=== PATIENT | female | born 1950 | race Two or more races ===

== ENCOUNTER 2017-12-21 05:26 | Inpatient (IN) ==
[2017-12-21] MEDS ORDERED: Bisacodyl 10 MG Supp RECTAL PRN (11:14)
--- NOTE | 2017-12-21 12:38 | P.HPCC ---
History of Present Illness Service: Critical Care Medicine Primary Care Physician: UNKNOWN Chief Complaint: Encephalopathy History of Present Illness: Patient is a 67-year-old female who arrives to the ER via EMS with altered mental status. Patient is diabetic. Family members noted that patient had thrown her medication around the room and pt was found on the floor and noted to be combative and agitated. Upon EMS arrival, patient was found to have a blood sugar of 34. They were unable to obtain IV access. Patient is agitated and uncooperative and nonverbal. Patient continues to writhe and make non- intelligible sounds. Patient is morbidly obese and EMS was unable to obtain an intraosseous catheter. Upon arrival in the emergency department, patient had to be restrained with soft restraints. Ativan 1 mg IM was given to try and calm her down. Per EMS, patient has done something similar to this once before when she took too many of her meds at once. A CAT scan of the head raise some suspicion for a possible area of frontal lobe contusion or bleed however further review indicates that this is most probably artifact. There is no evidence of external trauma to the head. The patient does complain of having fallen straight on both knees and having pain in the knees. Further she has long-standing gout and has ankle and knee pain. Because she fell onto her knees and has pain, we obtained bilateral knee films which are negative. - Diagnosis (1) Encephalopathy, metabolic (2) Poorly controlled diabetes mellitus Inpatient Certification: I certify that the inpatient services were ordered in accordance with Medicare regulations governing the order. This includes certification that hospital inpatient services are reasonable and necessary and in the case of services not specified as inpatient-only under 42 CFR 419.22(n), that they are appropriately provided as inpatient services in accordance to with the 2-midnight benchmark under 43 CFR 412.3(e) Estimated Total Length of Stay (Days): 2 Plans for Post Hospital Care: Home Review of Systems Mild shortness of breath, no chest pain. Complains of bilateral knee pain. No dizziness or lightheaded at this time. PMFSH - History History Provided By: Patient, Medical Record - Medical History Medical History: Medical History (Last Updated 12/21/17 @ 11:51 by Kristie Timmons RN) Anxiety Back pain Depression Hypercholesteremia Past heart attack Arthritis DVT (deep venous thrombosis) Diabetes H/O: hysterectomy Hypertension Kidney disease - Tobacco History Second Hand Smoke Exposure: No Smoking Status: Unknown if ever smoked - Alcohol History How Often Do You Have a Drink Containing Alcohol: Unable to Obtain - Substance Use History Substance History: No History of Abuse - Immunization History Tetanus Immunization: Unable to Assess Hx Influenza Vaccine This Season: Unable to Assess Medications and Allergies Active Medications: Active Medications Acetaminophen (Tylenol) 650 mg PO Q6H PRN PRN Reason: PAIN 1-10 AND/OR FEVER >101F Al Hydroxide/Mg Hydroxide (Milk Of Magnesia Liq) 30 ml PO Q12H PRN PRN Reason: Mild Constipation Aspirin (Ecotrin) 81 mg PO DAILY [facility] Bisacodyl (Dulcolax Supp) 10 mg RECTAL DAILY PRN PRN Reason: SEVERE CONSITIPATION Carvedilol (Coreg) 12.5 mg PO BID [facility] Chlorhexidine Gluconate (Chlorhexidine 2% Cloth) 3 pack TOPICAL DAILY@0400 [facility] Stop: 12/27/17 03:59 Chlorhexidine Gluconate (Chlorhexidine 2% Cloth) 3 pack TOPICAL DAILY@0400 PRN PRN Reason: Extra cloth needed Stop: 12/27/17 03:59 Famotidine (Pepcid) 20 mg PO BID [facility] Ferrous Sulfate (Ferosul) 325 mg PO BID@1200,1700 [facility] Furosemide (Lasix) 40 mg PO DAILY [facility] Heparin Sodium (Porcine) (Heparin Inj) 5,000 units SQ Q12H [facility] Insulin Aspart (Novolog Mix 70/30 Inj) 36 units SQ DAILY [facility] Lactulose (Lactulose Liq) 30 ml PO DAILY PRN PRN Reason: SEVERE CONSITIPATION Levothyroxine Sodium (Synthroid) 100 mcg PO DAILY [facility] Risperidone (Risperdal) 1 mg PO BID [facility] Senna/Docusate Sodium (Essence-Colace) 1 tab PO BID [facility] Sennosides (Senokot) 17.2 mg PO Q12H PRN PRN Reason: Moderate Constipation Sertraline HCl (Zoloft) 50 mg PO DAILY [facility] Sodium Chloride (Ns Flush) 2 ml IV.FLUSH BID [facility] Sodium Chloride (Ns Flush) 2 ml IV.FLUSH PRN PRN PRN Reason: FLUSH AFTER USING IV ACCESS Tramadol HCl (Ultram) 50 mg PO TID PRN PRN Reason: Pain Allergies Allergy/AdvReac Type Severity Reaction Status Date / Time No Known Allergies Allergy Uncoded 11/30/12 00:14 Home Medications Medication Instructions Recorded Confirmed Type acetaminophen 500 mg PO Q4H PRN 12/21/17 12/21/17 History aspirin [Aspir-81] 81 mg PO DAILY 12/21/17 12/21/17 History bisacodyl 5 mg PO DAILY PRN 12/21/17 12/21/17 History carvedilol 12.5 mg PO BID 12/21/17 12/21/17 History furosemide 40 mg PO DAILY 12/21/17 12/21/17 History insulin asp prt-insulin aspart 36 unit SUBCUT DAILY 12/21/17 12/21/17 History [Novolog Mix 70-30 U-100 Insuln] levothyroxine 100 mcg PO DAILY 12/21/17 12/21/17 History ranitidine HCl 300 mg PO DAILY 12/21/17 12/21/17 History risperidone 1 mg PO BID 12/21/17 12/21/17 History sertraline 50 mg PO DAILY 12/21/17 12/21/17 History tramadol 50 mg PO TID PRN 12/21/17 12/21/17 History Results - Labs CBC & Chem 7: 12/21/17 15:25 Exam Vital signs: Intake & Output 12/20/17 12/21/17 12/21/17 18:59 06:59 18:59 Weight 132.8 kg Other: Weight On Admission 133.4 kg Narrative: Physical exam GENERAL: Obese elderly female very agitated and combative and uncooperative initially, now calm. SKIN: Focused skin assessment warm/dry. HEAD: Atraumatic. Normocephalic. EYES: Pupils equal and round. PABLO, no scleral icterus. No injection or drainage. ENT: No nasal bleeding or discharge. Mucous membranes pink and moist. NECK: Trachea midline. Airway widely patent, no obstructive noises. CARDIOVASCULAR: Regular rate and rhythm. 3/6 systolic murmur heard throughout precordium. No JVD. RESPIRATORY: No accessory muscle use. Clear to auscultation. Breath sounds equal bilaterally. GASTROINTESTINAL: Abdomen soft, non-tender, nondistended. No guarding, bowel sounds active. MUSCULOSKELETAL: No obvious deformities. No clubbing. No cyanosis. No edema. Warm, well-perfused. NEUROLOGICAL: Moving 4 extremities but agitated on arrival to ED. Calm cooperative now follows commands. Speaks only [place]. PSYCHIATRIC: Appropriate mood and affect; insight and judgment normal. Caprini VTE Risk Assessment Caprini VTE Risk Assessment: Moderate/High Risk (score >= 2) Caprini Risk Assessment Model: Point Value = 1 Point Value = 2 Point Value = 3 Point Value = 5 Age 41-60 Minor surgery BMI > 25 kg/m2 Swollen legs Varicose veins or History of unexplained or recurrent spontaneous Oral contraceptives or hormone replacement Sepsis (< 1 month) Serious lung disease, including pneumonia (< 1 month) Abnormal pulmonary function Acute myocardial infarction Congestive heart failure (< 1 month) History of inflammatory bowel disease Medical patient at bed rest Age 61-74 Arthroscopic surgery Major open surgery (> 45 min) Laparoscopic surgery (> 45 min) Malignancy Confined to bed (> 72 hours) Immobilizing plaster cast Central venous access Age >= 75 History of VTE Family history of VTE Factor V Leiden Prothrombin [id number] Lupus anticoagulant Anticardiolipin antibodies Elevated serum homocysteine Heparin-induced thrombocytopenia Other congenital or acquired thrombophilia Stroke (< 1 month) Elective arthroplasty Hip, pelvis, or leg fracture Acute spinal cord injury (< 1 month) Prophylaxis Regimen: Total Risk Factor Score Risk Level Prophylaxis Regimen 0-1 Low Early ambulation 2 Moderate Order ONE of the following: *Sequential Compression Device (SCD) *Heparin 5000 units SQ BID 3-4 Higher Order ONE of the following medications: *Heparin 5000 units SQ TID *Enoxaparin/Lovenox 40 mg SQ daily (WT < 150 kg, CrCl > 30 mL/min) *Enoxaparin/Lovenox 30 mg SQ daily (WT < 150 kg, CrCl > 10-29 mL/min) *Enoxaparin/Lovenox 30 mg SQ BID (WT < 150 kg, CrCl > 30 mL/min) AND/OR *Sequential Compression Device (SCD) 5 or more Highest Order ONE of the following medications: *Heparin 5000 units SQ TID (Preferred with Epidurals) *Enoxaparin/Lovenox 40 mg SQ daily (WT < 150 kg, CrCl > 30 mL/min) *Enoxaparin/Lovenox 30 mg SQ daily (WT < 150 kg, CrCl > 10-29 mL/min) *Enoxaparin/Lovenox 30 mg SQ BID (WT < 150 kg, CrCl > 30 mL/min) AND *Sequential Compression Device (SCD) Assessment and Plan - Problem List (1) Encephalopathy, metabolic Code(s): G93.41 - Metabolic encephalopathy Status: Acute (2) Poorly controlled diabetes mellitus Code(s): E11.65 - Type 2 diabetes mellitus with hyperglycemia Status: Acute - Assessment and Plan Plan: Plan: 1. Admit to ICU for ongoing evaluation 2. To 6-hour blood glucose determination with sliding scale insulin correction 3. 2000-calorie ADA diet 4. Restart insulin 70/30, 36 units daily 5. Electrolyte replacement protocol. 6. X-rays of both knees. 7. Repeat CAT scan of the head. 8. Notify neurosurgical service of arrival. Overall impression: This episode appears to have been initiated by a period of hypoglycemia. She has had this type of episode before when her blood sugar was low. Her neurological exam is grossly normal at this time and certainly nonfocal. Her glucose is clearly poorly controlled and her encephalopathy appears to have resolved following correction of her blood sugar. H&P: Quality - VTE Deep Vein Thrombosis/Pulmonary Embolism Present on Admission: No
[2017-12-21] MEDS ORDERED: Dextrose 50% in Water 50 ML Vial IV.PUSH PRN (12:40)
--- NOTE | 2017-12-21 12:40 | P.CONNS ---
History of Present Illness Primary Care Provider: UNKNOWN Chief Complaint: Evaluation of intracranial abnormality History of Present Illness: Ms. Hilliard is a 67 y/o female who was found hypoglycemic with altered mental status, transported to outside [place] facility for evaluation. CT of the head demonstrated hyperdensity in the left frontal lobe most consistent with artifact rather than intracranial hemorrhage. She was transported to [facility] for further evaluation. Review of Systems unobtainable due to mental status [facility] - History History Provided By: Patient, Medical Record - Medical / Surgical Hx Neg / Unobtainable Medical Problems Denied: Unable to Obtain Surgical History: Unable to Obtain - Medical History Medical History: Medical History (Last Updated 12/21/17 @ 11:51 by Kristie Timmons RN) Anxiety Back pain Depression Hypercholesteremia Past heart attack Arthritis DVT (deep venous thrombosis) Diabetes H/O: hysterectomy Hypertension Kidney disease - Tobacco History Second Hand Smoke Exposure: No Smoking Status: Unknown if ever smoked - Alcohol History How Often Do You Have a Drink Containing Alcohol: Unable to Obtain - Substance Use History Substance History: No History of Abuse - Immunization History Tetanus Immunization: Unable to Assess Hx Influenza Vaccine This Season: Unable to Assess Medications and Allergies Active Medications: Active Medications Acetaminophen (Tylenol) 650 mg PO Q6H PRN PRN Reason: PAIN 1-10 AND/OR FEVER >101F Al Hydroxide/Mg Hydroxide (Milk Of Aleyda Seo) 30 ml PO Q12H PRN PRN Reason: Mild Constipation Aspirin (Ecotrin) 81 mg PO DAILY [facility] Bisacodyl (Dulcolax Supp) 10 mg RECTAL DAILY PRN PRN Reason: SEVERE CONSITIPATION Carvedilol (Coreg) 12.5 mg PO BID [facility] Chlorhexidine Gluconate (Chlorhexidine 2% Cloth) 3 pack TOPICAL DAILY@0400 [facility] Stop: 12/27/17 03:59 Chlorhexidine Gluconate (Chlorhexidine 2% Cloth) 3 pack TOPICAL DAILY@0400 PRN PRN Reason: Extra cloth needed Stop: 12/27/17 03:59 Famotidine (Pepcid) 20 mg PO BID [facility] Ferrous Sulfate (Ferosul) 325 mg PO BID@1200,1700 [facility] Furosemide (Lasix) 40 mg PO DAILY [facility] Heparin Sodium (Porcine) (Heparin Inj) 5,000 units SQ Q12H [facility] Insulin Aspart (Novolog Mix 70/30 Inj) 36 units SQ DAILY [facility] Lactulose (Lactulose Liq) 30 ml PO DAILY PRN PRN Reason: SEVERE CONSITIPATION Levothyroxine Sodium (Synthroid) 100 mcg PO DAILY [facility] Risperidone (Risperdal) 1 mg PO BID [facility] Senna/Docusate Sodium (Essence-Colace) 1 tab PO BID [facility] Sennosides (Senokot) 17.2 mg PO Q12H PRN PRN Reason: Moderate Constipation Sertraline HCl (Zoloft) 50 mg PO DAILY [facility] Sodium Chloride (Ns Flush) 2 ml IV.FLUSH BID [facility] Sodium Chloride (Ns Flush) 2 ml IV.FLUSH PRN PRN PRN Reason: FLUSH AFTER USING IV ACCESS Tramadol HCl (Ultram) 50 mg PO TID PRN PRN Reason: Pain Allergies Allergy/AdvReac Type Severity Reaction Status Date / Time No Known Allergies Allergy Uncoded 11/30/12 00:14 Home Medications Medication Instructions Recorded Confirmed Type acetaminophen 500 mg PO Q4H PRN 12/21/17 12/21/17 History aspirin [Aspir-81] 81 mg PO DAILY 12/21/17 12/21/17 History bisacodyl 5 mg PO DAILY PRN 12/21/17 12/21/17 History carvedilol 12.5 mg PO BID 12/21/17 12/21/17 History furosemide 40 mg PO DAILY 12/21/17 12/21/17 History insulin asp prt-insulin aspart 36 unit SUBCUT DAILY 12/21/17 12/21/17 History [Novolog Mix 70-30 U-100 Insuln] levothyroxine 100 mcg PO DAILY 12/21/17 12/21/17 History ranitidine HCl 300 mg PO DAILY 12/21/17 12/21/17 History risperidone 1 mg PO BID 12/21/17 12/21/17 History sertraline 50 mg PO DAILY 12/21/17 12/21/17 History tramadol 50 mg PO TID PRN 12/21/17 12/21/17 History Exam Vital signs: Intake & Output 12/20/17 12/21/17 12/21/17 18:59 06:59 18:59 Weight 132.8 kg Other: Weight On Admission 133.4 kg Narrative: Opens eyes to voice, then closes PERRL EOMI Alert and oriented to self Grumbles when asked place and time Follows simple commands with prompting (squeeze/release, lifts legs/wiggles toes ). Results - Diagnostic Findings Additional findings: CT of the head demonstrated hyperdensity in the left frontal lobe most consistent with artifact rather than intracranial hemorrhage. Assessment and Plan - Plan Ms. Hilliard is a 67 y/o female presenting with altered mental status in the context of hypoglycemia. CT head with radiology read favoring artifact over hemorrhage, which I am in agreement (strongly favor artifact). Plan: No neurosurgical intervention indicated. Medical management of altered mental status and endocrinopathy per critical care team.
[2017-12-21] MEDS ORDERED: Carvedilol 12.5 MG Tablet PO ONE (12:45)
[2017-12-21] MEDS ORDERED: Labetalol HCl Inj 100 MG/20 ML Vial IV.PUSH PRN (13:00)
[2017-12-21] MEDS: Ferrous Sulfate 325 MG Tablet PO SCH ×2 (13:01→17:59)
[2017-12-21] MEDS: Heparin - SQ 10,000 UNITS/ML Vial SQ SCH (13:02)
--- NOTE | 2017-12-21 15:29 | XR ---
EXAM DATE: 12/21/2017 12:00 AM EDT AGE/SEX: 67 years / Female INDICATIONS: Evaluate right knee for trauma, fell CLINICAL DATA: This is the patient's initial encounter. Patient reports that signs and symptoms have been present for 2 days and indicates a pain score of 10/10. MEDICAL/SURGICAL HISTORY: Diabetes mellitus type II. Arthritis. None. COMPARISON: No prior exams available for comparison. FINDINGS: The examination demonstrates moderate tricompartmental osteoarthritis. No acute fracture is seen. No destructive lesion is present. CONCLUSION: No acute fracture. Tricompartmental osteoarthritis. Electronically signed by: Kody Guillen MD 12/21/2017 3:28 PM EDT
--- NOTE | 2017-12-21 15:29 | XR ---
EXAM DATE: 12/21/2017 12:00 AM EDT AGE/SEX: 67 years / Female INDICATIONS: Evaluate left knee for trauma, fell CLINICAL DATA: This is the patient's initial encounter. Patient reports that signs and symptoms have been present for 2 days and indicates a pain score of 8/10. MEDICAL/SURGICAL HISTORY: Diabetes mellitus type II. Arthritis. None. COMPARISON: . FINDINGS: The examination demonstrates advanced tricompartmental osteoarthritis with a small joint effusion. No acute fractures seen. CONCLUSION: Tricompartmental osteoarthritis. No acute fracture identified. Electronically signed by: Kody Guillen MD 12/21/2017 3:28 PM EDT
[2017-12-21 16:18] LABS: Calcium 8.5 mg/dL (8.5-10.1); Carbon Dioxide 27.1 meq/L (21.0-32.0); Potassium 4.3 meq/L (3.5-5.1)
[2017-12-21] MEDS: Insulin NovoLOG Aspart Correctional Sugar Inj SQ SCH ×2 (18:44→21:38)
--- NOTE | 2017-12-21 19:51 | CT ---
EXAM DATE: 12/21/2017 7:28 PM EDT AGE/SEX: 67 years / Female INDICATIONS: Follow up possible bleed vs. artifact. Patient with altered mental status. CLINICAL DATA: This is the patient's subsequent encounter. Patient reports that signs and symptoms h ave been present for 1 day and indicates a pain score of 0/10. MEDICAL/SURGICAL HISTORY: Cerebrovascular disease. Diabetes. None. RADIATION DOSE: 38.38 CTDI (mGy) COMPARISON: [facility], CT HEAD W/O CONTRAST, 12/21/2017. . TECHNIQUE: CT of the head without contrast. Using automated exposure control and adjustment of the mA and/or kV according to patient size, radiation dose was kept as low as reasonably achievable to ob tain optimal diagnostic quality images. DICOM format image data is available electronically for revi ew and comparison. FINDINGS: There is mild motion artifact again noted. Cerebrum: The ventricles are normal for age. No evidence of midline shift, mass lesion, hemorrhage or acute infarction. No extraaxial fluid collections are seen. The previous noted area of increased density along the anterior left medial frontal lobe is no longer visualized. There is a new area of i ncreased density seen on axial image #16 which may be artifactual. There is motion artifact throughou t these images. Posterior Fossa: The cerebellum and brainstem are intact. The 4th ventricle is midline. The cerebe llopontine angle is unremarkable. Extracranial: The visualized portion of the orbits is intact. Skull: The calvaria is intact. No evidence of skull fracture. There is mild hyperostosis frontalis internal greater on the left. CONCLUSION: 1. No definite acute hemorrhage or mass effect. The previously noted area of increased density is no longer visualized. There is a new area of increased density noted which appears artifactual likely i s secondary to motion artifact.. . Electronically signed by: Vinny Boudreaux MD 12/21/2017 7:50 PM EDT
[2017-12-21] MEDS ORDERED: Senna/Docusate Sodium 8.6/50 MG Tablet PO SCH (21:00)
[2017-12-21] MEDS: Famotidine 20 MG Tablet PO SCH (21:13)
[2017-12-21] MEDS: hydrALAZINE HCl Inj 20 MG/ML Vial IV.PUSH PRN ×2 (21:14→23:30)
[2017-12-21] MEDS: Carvedilol 12.5 MG Tablet PO SCH (22:05)
[2017-12-22] MEDS: Chlorhexidine Gluconate 2% 1 Pack (2 Cloths) TOPICAL SCH (03:19)
[2017-12-22] MEDS ORDERED: Chlorhexidine Gluconate 2% 1 Pack (2 Cloths) TOPICAL PRN (04:00)
[2017-12-22 04:30] LABS: Calcium 8.8 mg/dL (8.5-10.1); Carbon Dioxide 20.9 meq/L (21.0-32.0); Potassium 4.5 meq/L (3.5-5.1)
[2017-12-22] MEDS: Insulin NovoLOG Aspart Correctional Sugar Inj SQ SCH ×4 (08:00→20:42)
[2017-12-22] MEDS: Levothyroxine 100 MCG Tablet PO SCH (08:10)
[2017-12-22] MEDS: Sertraline 50 MG Tablet PO SCH (08:10)
[2017-12-22] MEDS: Famotidine 20 MG Tablet PO SCH ×2 (08:10→20:31)
[2017-12-22] MEDS: Furosemide 40 MG Tablet PO SCH (08:10)
[2017-12-22] MEDS: Carvedilol 12.5 MG Tablet PO SCH ×2 (09:00→21:55)
[2017-12-22] MEDS ORDERED: Insulin Aspart Prot 70/30 1,000 UNITS/10 ML Vial SQ SCH (09:00)
--- NOTE | 2017-12-22 11:22 | P.PN ---
Subjective Interval history: Follow-up metabolic encephalopathy/symptomatic hypoglycemia December 22, 2017-patient seen and examined, alert and oriented. Patient is a Yi-speaking female. Complains of headache. Requesting something to sleep tonight. Blood glucose low. Physical Exam Vital signs: Vital Signs 12/21/17 12:00 12/21/17 13:00 12/21/17 14:00 Temperature 97.9 F Pulse Rate 66 68 58 L Respiratory Rate 26 H 26 H 25 H Blood Pressure 182/79 H 193/79 H 97/44 L Pulse Oximetry 99 99 96 12/21/17 15:00 12/21/17 16:00 12/21/17 17:00 Temperature 99.4 F Pulse Rate 62 56 L 62 Respiratory Rate 21 28 H 24 Blood Pressure 162/70 H 159/71 H Pulse Oximetry 97 100 98 12/21/17 18:00 12/21/17 20:00 12/21/17 20:15 Temperature 98.1 F Pulse Rate 60 58 L Respiratory Rate 22 19 Blood Pressure 141/56 H 171/71 H Pulse Oximetry 98 99 98 12/21/17 22:00 12/22/17 00:00 12/22/17 02:00 Temperature 98.3 F Pulse Rate 62 56 L 54 L Respiratory Rate 22 Blood Pressure 138/63 Pulse Oximetry 99 12/22/17 04:00 12/22/17 06:00 Temperature 98 F Pulse Rate 58 L 50 L Respiratory Rate 17 Blood Pressure 115/57 L Pulse Oximetry 98 Intake & Output 12/21/17 12/22/17 12/22/17 18:59 06:59 18:59 Intake Total 400 / 400 Output Total 950 / 950 375 / 375 Balance -550 / -550 -375 / -375 Weight 132.8 kg 129.6 kg Intake: Oral 400 / 400 Output: Urine Amount (Catheter) 950 / 950 375 / 375 Indwelling Urethral Catheter 950 / 950 375 / 375 Other: Date of Last Bowel Movement 12/20/17 12/20/17 # Bowel Movements 0 0 Weight On Admission 133.4 kg Narrative: GENERAL: NAD SKIN: Warm and dry. HEAD: Normocephalic. EYES: No scleral icterus. No injection or drainage. NECK: Supple, trachea midline. No JVD or lymphadenopathy. CARDIOVASCULAR: Regular rate and rhythm without murmurs, gallops, or rubs. RESPIRATORY: Breath sounds equal bilaterally. No accessory muscle use. GASTROINTESTINAL: Abdomen soft, non-tender, nondistended. MUSCULOSKELETAL: No cyanosis, or edema. BACK: Nontender without obvious deformity. No CVA tenderness. - Urinary Catheter Management Indwelling Urethral Catheter Cath placed during this visit: no Results - Labs CBC & Chem 7: 12/22/17 03:06 Laboratory Results - last 24 hr 12/21/17 12/21/17 12/21/17 11:55 12:34 15:25 Sodium 143 Potassium 4.3 Chloride 108 H Carbon Dioxide 27.1 Anion Gap 8 BUN 18 Creatinine 1.45 H Estimated GFR 36 L POC Glucose 87 Random Glucose 115 H Calcium 8.5 D Nasal Screen MRSA (PCR) Not detected 12/21/17 12/21/17 12/22/17 16:03 21:18 03:06 Sodium 140 Potassium 4.5 Chloride 109 H Carbon Dioxide 20.9 L Anion Gap 10 BUN 22 H Creatinine 1.54 H Estimated GFR 33 L POC Glucose 113 H 114 H Random Glucose 93 Calcium 8.8 Nasal Screen MRSA (PCR) 12/22/17 08:23 Sodium Potassium Chloride Carbon Dioxide Anion Gap BUN Creatinine Estimated GFR POC Glucose 82 Random Glucose Calcium Nasal Screen MRSA (PCR) - Imaging Impressions Head CT 12/21/17 00:00 CONCLUSION: 1. No definite acute hemorrhage or mass effect. The previously noted area of increased density is no longer visualized. There is a new area of increased density noted which appears artifactual likely is secondary to motion artifact.. . Knee X-Ray 12/21/17 00:00 CONCLUSION: Tricompartmental osteoarthritis. No acute fracture identified. Knee X-Ray 12/21/17 00:00 CONCLUSION: No acute fracture. Tricompartmental osteoarthritis. - Procedures None Assessment and Plan - Assessment (1) Hypoglycemia associated with diabetes Code(s): E11.649 - Status: Acute (2) Encephalopathy, metabolic Code(s): G93.41 - Status: Acute - Plan 67-year-old female with Metabolic encephalopathy Now resolved It was due to severe episode of hypoglycemia Hypoglycemia associated with type 2 diabetes Will hold basal insulin Continue treatment per hypoglycemia protocol Diabetes type [address] of the head demonstrated hyperdensity in the left frontal lobe most consistent with artifact rather than intracranial hemorrhage. Appreciate input from neurosurgery, no indication for further study Other chronic medical conditions Continue outpatient medications DVT prophylaxis: Bilateral SCDs Continue treatment ICU as patient with blood glucose of 33
[2017-12-22] MEDS: Heparin - SQ 10,000 UNITS/ML Vial SQ SCH ×3 (12:27→23:32)
[2017-12-22] MEDS: Ferrous Sulfate 325 MG Tablet PO SCH ×2 (12:27→16:50)
--- NOTE | 2017-12-22 14:14 | ECHRPT ---
Indication: SHORTNESS OF BREATH CONCLUSIONS Normal left ventricular size. Mild concentric left ventricular hypertrophy. The left ventricular systolic function is low normal with an estimated ejection fraction in the rang e of 50- 55%. Mild mitral annular calcification. Trace mitral valve regurgitation. Mild aortic valve stenosis. Mean aortic valve gradient 16 mmhg Diffuse calcification of the aortic valve. There is mild tricuspid valve regurgitation. The estimated pulmonary arterial pressure is 39 mmHg. BP: / HR: Rhythm: MEASUREMENTS (Male / Female) Normal Values Technical Quality: 2D ECHO LV Diastolic Diameter PLAX 4.3 cm 4.2 - 5.9 / 3.9 - 5.3 cm LV Systolic Diameter PLAX 2.9 cm IVS Diastolic Thickness 1.2 cm 0.6 - 1.0 / 0.6 - 0.9 cm LVPW Diastolic Thickness 1.3 cm 0.6 - 1.0 / 0.6 - 0.9 cm LV Relative Wall Thickness 0.6 RV Internal Dim ED PLAX 3.3 cm LVOT Diameter 1.9 cm Aortic Root Diameter 2.5 cm LA Systolic Diameter LX 3.5 cm 3.0 - 4.0 / 2.7 - 3.8 cm LV Ejection Fraction MOD 4C 52.1 % LV Ejection Fraction 4C AL 53.0 % M-MODE Aortic Root Diameter MM 2.9 cm LA Systolic Diameter MM 4.4 cm LA Ao Ratio MM 1.5 AV Cusp Separation MM 1.3 cm DOPPLER AV Peak Velocity 277.8 cm/s AV Peak Gradient 30.9 mmHg AV Mean Gradient 16.0 mmHg AV Velocity Time Integral 75.0 cm LVOT Peak Velocity 89.5 cm/s LVOT Peak Gradient 3.2 mmHg LVOT Velocity Time Integral 26.4 cm AV Area Cont Eq vti 1.0 cm AV Area Cont Eq pk 0.9 cm Mitral E Point Velocity 113.0 cm/s Mitral A Point Velocity 119.0 cm/s Mitral E to A Ratio 0.9 LV E' Lateral Velocity 6.1 cm/s Mitral E to LV E' Lateral Ratio 18.4 LV E' Septal Velocity 6.7 cm/s Mitral E to LV E' Septal Ratio 16.8 TR Peak Velocity 270.0 cm/s TR Peak Gradient 29.2 mmHg Right Atrial Pressure 10.0 mmHg Pulmonary Artery Systolic Pressu 39.2 mmHg Right Ventricular Systolic Press 39.2 mmHg PV Peak Velocity 144.0 cm/s PV Peak Gradient 8.3 mmHg FINDINGS LEFT VENTRICLE Normal left ventricular size. Mild concentric left ventricular hypertrophy. The left ventricular systolic function is low normal with an estimated ejection fraction in the rang e of 50- 55%. RIGHT VENTRICLE Normal right ventricular size and systolic function. LEFT ATRIUM The left atrial size is normal. RIGHT ATRIUM The right atrial size is normal. ATRIAL SEPTUM Normal atrial septal thickness without atrial level shunting by limited color doppler interrogation. AORTA The aortic root and proximal ascending aorta are normal in size on limited imaging. MITRAL VALVE Mild mitral annular calcification. Trace mitral valve regurgitation. AORTIC VALVE Mild aortic valve stenosis. Mean gradient 16 mmhg. Diffuse calcification of the aortic valve. TRICUSPID VALVE There is mild tricuspid valve regurgitation. The estimated pulmonary arterial pressure is 39 mmHg. PULMONARY VALVE No pulmonary valve regurgitation or stenosis. VESSELS The inferior vena cava is normal in size. PERICARDIUM No pericardial effusion. Martin Godwin MD, FACC, [facility] [place] (Electronically Signed) Final Date:22 December 2017 14:12
[2017-12-22] MEDS: Temazepam 15 MG Capsule PO PRN (20:32)
[2017-12-23] MEDS: Chlorhexidine Gluconate 2% 1 Pack (2 Cloths) TOPICAL SCH (06:47)
[2017-12-23 07:47] LABS: Calcium 9.5 mg/dL (8.5-10.1); Carbon Dioxide 26.9 meq/L (21.0-32.0); Potassium 4.4 meq/L (3.5-5.1)
[2017-12-23] MEDS: Insulin NovoLOG Aspart Correctional Sugar Inj SQ SCH ×4 (09:01→21:46)
[2017-12-23] MEDS: Carvedilol 12.5 MG Tablet PO SCH ×2 (09:11→20:52)
[2017-12-23] MEDS: Furosemide 40 MG Tablet PO SCH (09:11)
[2017-12-23] MEDS: Levothyroxine 100 MCG Tablet PO SCH (09:11)
[2017-12-23] MEDS: Sertraline 50 MG Tablet PO SCH (09:12)
[2017-12-23] MEDS: Famotidine 20 MG Tablet PO SCH ×2 (09:12→20:54)
--- NOTE | 2017-12-23 11:29 | P.PNIM ---
Subjective Interval history: Patient sleeping, wakes of her exam. Over the phone conference interpreter used. Patient says that she has pain all over for which she uses narcotics at home. She says she has been using insulin 10 years. She is very concerned with following up with her pain management doctor tomorrow to receive narcotic prescription. She reports history of sleep apnea, initially says that she uses CPAP, however subsequently says that she left it in [place] 3 years ago. Physical Exam Vital signs: Vital Signs 12/22/17 12:00 12/22/17 14:00 12/22/17 16:00 Temperature 97.7 F 97.9 F Pulse Rate 58 L 65 60 Respiratory Rate 33 H 16 Blood Pressure 137/56 L 153/83 H Pulse Oximetry 90 L 98 12/22/17 18:00 12/22/17 20:00 12/22/17 22:00 Temperature 98.0 F Pulse Rate 62 68 60 Respiratory Rate 22 Blood Pressure 143/61 H Pulse Oximetry 98 12/23/17 00:00 12/23/17 01:00 12/23/17 04:00 Temperature 97.3 F L 97.4 F L Pulse Rate 64 67 68 Respiratory Rate 20 18 Blood Pressure 153/66 H 149/67 H Pulse Oximetry 97 93 L 12/23/17 08:00 Temperature 97.5 F L Pulse Rate 69 Respiratory Rate 20 Blood Pressure 144/63 H Pulse Oximetry 94 L Intake & Output 12/22/17 12/23/17 12/23/17 18:59 06:59 18:59 Intake Total 600 / 600 Output Total 1200 / 1200 Balance -600 / -600 Weight 130.1 kg Intake: Oral 600 / 600 Output: Urine Amount (Catheter) 1200 / 1200 Indwelling Urethral Catheter 1200 / 1200 Other: Date of Last Bowel Movement 12/20/17 12/20/17 # Bowel Movements 0 Narrative: GENERAL: Patient lying in bed. Obese. Sleeping, wakes up for exam. She is somnolent but oriented x3. SKIN: Warm and dry. HEAD: Normocephalic. EYES: No scleral icterus. No injection or drainage. NECK: Supple, trachea midline. No JVD. CARDIOVASCULAR: Regular rate and rhythm without murmurs, gallops, or rubs. RESPIRATORY: Breath sounds equal bilaterally. No accessory muscle use. GASTROINTESTINAL: Abdomen soft, non-tender, nondistended. MUSCULOSKELETAL: No cyanosis, or edema. BACK: Nontender without obvious deformity. No CVA tenderness. - Urinary Catheter Management Indwelling Urethral Catheter Cath placed during this visit: no Results - Labs CBC & Chem 7: 12/23/17 06:01 Laboratory Results - last 24 hr 12/22/17 12/22/17 12/22/17 12:42 16:34 20:36 Sodium Potassium Chloride Carbon Dioxide Anion Gap BUN Creatinine Estimated GFR POC Glucose 109 156 H 188 H Random Glucose Calcium TSH 12/23/17 12/23/17 12/23/17 05:02 06:01 06:01 Sodium 138 Potassium 4.4 Chloride 104 Carbon Dioxide 26.9 Anion Gap 7 BUN 26 H Creatinine 1.68 H Estimated GFR 30 L POC Glucose 106 Random Glucose 98 Calcium 9.5 TSH 2.220 - Procedures None Assessment and Plan - Assessment (1) Hypoglycemia associated with diabetes Code(s): E11.649 - Type 2 diabetes mellitus with hypoglycemia without coma Status: Acute (2) Encephalopathy, metabolic Code(s): G93.41 - Metabolic encephalopathy Status: Acute - Plan TSH pending. 67-year-old female with //Metabolic encephalopathy Now resolved It was due to severe episode of hypoglycemia. = Patient on chronic narcotics for diffuse pain. This pain is likely exacerbated by untreated sleep apnea, patient noncompliant with CPAP. She will need a new CPAP as an outpatient. //Affected obstructive sleep apnea //Chronic narcotic use Patient very concerned with following up to receive narcotic prescriptions from pain management tomorrow. I believe she has chronic untreated sleep apnea for which she is noncompliant with CPAP. Recommend avoiding all narcotics. You need to follow with pulmonology as outpatient to get a CPAP. //Hypoglycemia associated with type 2 diabetes Will hold basal insulin Continue treatment per hypoglycemia protocol = Have ordered elementary educator. //Diabetes type 2 Hold home medications //Kidney disease stage III. Creatinine around baseline. Avoid nephrotoxins. //CT of the head demonstrated hyperdensity in the left frontal lobe most consistent with artifact rather than intracranial hemorrhage. Appreciate input from neurosurgery, no indication for further study //Other chronic medical conditions Continue outpatient medications //DVT prophylaxis: Bilateral SCDs Discharge Planning: Hopefully discharge home with home health tomorrow
--- NOTE | 2017-12-23 11:33 | P.DCO ---
- Physical Therapy Order: Evaluate and treat - Home Health Nursing Order: Diabetic education Instructions: Patient will need home health nurse for medication management. Avoid narcotics - Case Management Consult Yes - Certification I have seen patient Chel Hilliard on 12/23/17. My clinical findings support the need for the requested home health care services because: Limited ability to care for self I certify that my clinical findings support that this patient is homebound because: Need for psychosocial assistance
[2017-12-23] MEDS: Heparin - SQ 10,000 UNITS/ML Vial SQ SCH ×2 (12:04→22:52)
[2017-12-23] MEDS: Ferrous Sulfate 325 MG Tablet PO SCH ×2 (12:04→18:18)
[2017-12-23 16:22] LABS: Hemoglobin A1c 5.3 % (4.3-6.0)
[2017-12-24] MEDS: Chlorhexidine Gluconate 2% 1 Pack (2 Cloths) TOPICAL SCH (06:34)
[2017-12-24] MEDS: Famotidine 20 MG Tablet PO SCH ×2 (09:29→21:02)
[2017-12-24] MEDS: Sertraline 50 MG Tablet PO SCH (09:29)
[2017-12-24] MEDS: Furosemide 40 MG Tablet PO SCH (09:30)
[2017-12-24] MEDS: Carvedilol 12.5 MG Tablet PO SCH ×2 (09:30→21:02)
[2017-12-24] MEDS: Levothyroxine 100 MCG Tablet PO SCH (09:30)
[2017-12-24] MEDS: Insulin NovoLOG Aspart Correctional Sugar Inj SQ SCH ×4 (09:33→21:02)
[2017-12-24] MEDS: Heparin - SQ 10,000 UNITS/ML Vial SQ SCH (11:00)
[2017-12-24] MEDS ORDERED: Promethazine 25 MG Supp RECTAL PRN (13:05)
[2017-12-24] MEDS: Ferrous Sulfate 325 MG Tablet PO SCH ×2 (13:37→18:27)
--- NOTE | 2017-12-24 14:38 | P.PNIM ---
Subjective Interval history: Somnolent today. She reports sleeping on her side at home, however sleeping on her back here. Physical Exam Vital signs: Vital Signs 12/23/17 16:00 12/23/17 20:00 12/24/17 00:00 Temperature 97.4 F L 98.1 F 97.9 F Pulse Rate 75 59 L 62 Respiratory Rate 20 18 20 Blood Pressure 171/79 H 179/77 H 151/71 H Pulse Oximetry 95 92 L 96 12/24/17 04:00 12/24/17 08:00 12/24/17 12:00 Temperature 96.1 F L 97.8 F 97.4 F L Pulse Rate 54 L 59 L 61 Respiratory Rate 20 16 16 Blood Pressure 135/61 167/71 H 167/65 H Pulse Oximetry 92 L 95 98 Intake & Output 12/23/17 12/24/17 12/24/17 18:59 06:59 18:59 Intake Total 240 / 240 400 / 400 Balance 240 / 240 400 / 400 Weight 128.3 kg Intake: Oral 240 / 240 400 / 400 Other: # Voids 5 2 # Bowel Movements 0 Narrative: GENERAL: Patient lying in bed. Obese. She is somnolent but, tells me the month , however does not tell me the year today. SKIN: Warm and dry. HEAD: Normocephalic. EYES: No scleral icterus. No injection or drainage. NECK: Supple, trachea midline. No JVD. CARDIOVASCULAR: Regular rate and rhythm without murmurs, gallops, or rubs. RESPIRATORY: Breath sounds equal bilaterally. No accessory muscle use. GASTROINTESTINAL: Abdomen soft, non-tender, nondistended. MUSCULOSKELETAL: No cyanosis, or edema. BACK: Nontender without obvious deformity. No CVA tenderness. - Urinary Catheter Management Indwelling Urethral Catheter Cath placed during this visit: no Results - Labs CBC & Chem 7: 12/23/17 06:01 Laboratory Results - last 24 hr 12/23/17 12/23/17 12/23/17 06:01 17:09 20:50 POC Glucose 178 H 173 H Hemoglobin A1c 5.3 12/24/17 12/24/17 08:23 12:35 POC Glucose 141 H 206 H Hemoglobin A1c - Procedures None Assessment and Plan - Assessment (1) Encephalopathy, metabolic Code(s): G93.41 - Metabolic encephalopathy Status: Acute (2) Poorly controlled diabetes mellitus Code(s): E11.65 - Type 2 diabetes mellitus with hyperglycemia Status: Acute (3) Hypoglycemia associated with diabetes Code(s): E11.649 - Type 2 diabetes mellitus with hypoglycemia without coma Status: Acute - Plan TSH pending. 67-year-old female with //Metabolic encephalopathy Now resolved It was due to severe episode of hypoglycemia. = Patient on chronic narcotics for diffuse pain. This pain is likely exacerbated by untreated sleep apnea, patient noncompliant with CPAP. She will need a new CPAP as an outpatient. =12/24 Patient very somnolent today. Malignant sleep apnea. Pulmonology consult. Have ordered CPAP. Instructed patient to sleep on her side while in the hospital. //Affected obstructive sleep apnea //Chronic narcotic use Patient very concerned with following up to receive narcotic prescriptions from pain management tomorrow. I believe she has chronic untreated sleep apnea for which she is noncompliant with CPAP. Recommend avoiding all narcotics. You need to follow with pulmonology as outpatient to get a CPAP. = Very severe sleep apnea. Will start on CPAP. Pending pulmonology consultation. //Hypoglycemia associated with type 2 diabetes Will hold basal insulin Continue treatment per hypoglycemia protocol = Have ordered breastfeeding educator. Patient will no longer need insulin. //Diabetes type 2 Hold home medications //Kidney disease stage III. Creatinine around baseline. Avoid nephrotoxins. //CT of the head demonstrated hyperdensity in the left frontal lobe most consistent with artifact rather than intracranial hemorrhage. Appreciate input from neurosurgery, no indication for further study //Other chronic medical conditions Continue outpatient medications //DVT prophylaxis: Bilateral SCDs Discharge Planning: Hopefully discharge home with home health tomorrow. --We will need to talk with family
--- NOTE | 2017-12-24 15:43 | P.DS ---
Date of admission: 12/21/17 10:04 Primary care physician: UNKNOWN Brief History from admission: Patient is a 67-year-old female who arrives to the ER via EMS with altered mental status. Patient is diabetic. Family members noted that patient had thrown her medication around the room and pt was found on the floor and noted to be combative and agitated. Upon EMS arrival, patient was found to have a blood sugar of 34. They were unable to obtain IV access. Patient is agitated and uncooperative and nonverbal. Patient continues to writhe and make non- intelligible sounds. Patient is morbidly obese and EMS was unable to obtain an intraosseous catheter. Upon arrival in the emergency department, patient had to be restrained with soft restraints. Ativan 1 mg IM was given to try and calm her down. Per EMS, patient has done something similar to this once before when she took too many of her meds at once. A CAT scan of the head raise some suspicion for a possible area of frontal lobe contusion or bleed however further review indicates that this is most probably artifact. There is no evidence of external trauma to the head. The patient does complain of having fallen straight on both knees and having pain in the knees. Further she has long-standing gout and has ankle and knee pain. Because she fell onto her knees and has pain, we obtained bilateral knee films which are negative. DS: Diagnosis - Discharge Diagnosis (1) Encephalopathy, metabolic Status: Acute (2) Poorly controlled diabetes mellitus Status: Acute (3) Hypoglycemia associated with diabetes Status: Acute DS: Summary Hospital Course: TSH pending. 67-year-old female with //Metabolic encephalopathy Now resolved It was due to severe episode of hypoglycemia. = Patient on chronic narcotics for diffuse pain. This pain is likely exacerbated by untreated sleep apnea, patient noncompliant with CPAP. She will need a new CPAP as an outpatient. =12/24 Patient very somnolent today. Malignant sleep apnea. Pulmonology consult. Have ordered CPAP. Instructed patient to sleep on her side while in the hospital. //Affected obstructive sleep apnea //Chronic narcotic use Patient very concerned with following up to receive narcotic prescriptions from pain management tomorrow. I believe she has chronic untreated sleep apnea for which she is noncompliant with CPAP. Recommend avoiding all narcotics. You need to follow with pulmonology as outpatient to get a CPAP. = Very severe sleep apnea. Will start on CPAP. Pending pulmonology consultation. //Hypoglycemia associated with type 2 diabetes Will hold basal insulin Continue treatment per hypoglycemia protocol = Have ordered adaptive physical educator. Patient will no longer need insulin. //Diabetes type 2 Hold home medications //Kidney disease stage III. Creatinine around baseline. Avoid nephrotoxins. //CT of the head demonstrated hyperdensity in the left frontal lobe most consistent with artifact rather than intracranial hemorrhage. Appreciate input from neurosurgery, no indication for further study //Other chronic medical conditions Continue outpatient medications //DVT prophylaxis: Bilateral SCDs Discharge Planning: Hopefully discharge home with home health tomorrow. --We will need to talk with family - Time Spent with Patient Total time spent providing and/or coordinating discharge services: Greater than 30 minutes - Quality: VTE Deep Vein Thrombosis/Pulmonary Embolism Present on Admission: No Exam Vital signs: Vital Signs 12/23/17 16:00 12/23/17 20:00 12/24/17 00:00 Temperature 97.4 F L 98.1 F 97.9 F Pulse Rate 75 59 L 62 Respiratory Rate 20 18 20 Blood Pressure 171/79 H 179/77 H 151/71 H Pulse Oximetry 95 92 L 96 12/24/17 04:00 12/24/17 08:00 12/24/17 12:00 Temperature 96.1 F L 97.8 F 97.4 F L Pulse Rate 54 L 59 L 56 L Respiratory Rate 20 16 16 Blood Pressure 135/61 167/71 H 167/65 H Pulse Oximetry 92 L 95 98 Intake & Output 12/23/17 12/24/17 12/24/17 18:59 06:59 18:59 Intake Total 240 / 240 400 / 400 Balance 240 / 240 400 / 400 Weight 128.3 kg Intake: Oral 240 / 240 400 / 400 Other: # Voids 5 2 # Bowel Movements 0 Results Procedures completed during hospitalization: None Labs on day of discharge: Labs from last 24 hours 12/24/17 12/24/17 12/23/17 12:35 08:23 20:50 POC Glucose 206 H 141 H 173 H Hemoglobin A1c 12/23/17 12/23/17 17:09 06:01 POC Glucose 178 H Hemoglobin A1c 5.3 - Impressions ITS Impressions Head CT 12/21/17 00:00 CONCLUSION: 1. No definite acute hemorrhage or mass effect. The previously noted area of increased density is no longer visualized. There is a new area of increased density noted which appears artifactual likely is secondary to motion artifact.. . Knee X-Ray 12/21/17 00:00 CONCLUSION: No acute fracture. Tricompartmental osteoarthritis. Discharge Plan - Discharge Disposition Patient Disposition: 01 Discharge Home - Discharge Condition Condition: Good - Discharge Order Discharge Orders: Discharge Order (Routine); Ordered 12/24/17 Ordered By: Gilberto Griffiths - Discharge Details Anticipated Discharge Date: 12/24/17 - Physicians Team Primary Care Provider: UNKNOWN, Attending Provider: Gilberto Griffiths Other Providers: Fermin Christensen MD - Rxs /Orders / Referrals /Forms Prescriptions: New glipizide 2.5 mg Tablet Extended Release 24hr 2.5 mg PO DAILY 30 Days Qty: 30 RF: 0 Continue aspirin [Aspir-81] 81 mg Tablet,Delayed Release (Dr/Ec) 81 mg PO DAILY bisacodyl 5 mg Tablet 5 mg PO DAILY PRN (Reason: Constipation) carvedilol 12.5 mg Tablet 12.5 mg PO BID furosemide 40 mg Tablet 40 mg PO DAILY levothyroxine 100 mcg Tablet 100 mcg PO DAILY risperidone 1 mg Tablet 1 mg PO BID sertraline 50 mg Tablet 50 mg PO DAILY tramadol 50 mg Tablet 50 mg PO TID PRN (Reason: Pain) Discontinued acetaminophen 500 mg Capsule 500 mg PO Q4H PRN (Reason: Pain) insulin asp prt-insulin aspart [Novolog Mix 70-30 U-100 Insuln] 100 unit/mL ( 70-30) Solution 36 unit SUBCUT DAILY ranitidine HCl 300 mg Capsule 300 mg PO DAILY Referrals: [facility] [Outside] - See Instructions (UNKNOWN COMMUNITY OUTREACH WORKER ) UNKNOWN, [Primary Care Provider] - See Instructions (PLEASE CALL FOR FOLLOW APPOINTMENT TO [facility] [phone] (MEDICAL RECORDS NEEDED) ) - Discharge Instructions Patient Printed Instructions: Glipizide (By mouth), Hypoglycemia in a Person with Diabetes (DC), Meal Planning with Diabetes Exchanges (DC)
--- NOTE | 2017-12-24 17:05 | XR ---
EXAM DATE: 12/24/2017 4:29 PM EDT AGE/SEX: 67 years / Female INDICATIONS: COPD. CLINICAL DATA: This is the patient's subsequent encounter. Patient reports that signs and symptoms h ave been present for 4 - 6 days and indicates a pain score of 0/10. MEDICAL/SURGICAL HISTORY: Diabetes. None. COMPARISON: No prior exams available for comparison. FINDINGS: A single AP view of the chest demonstrates bibasilar densities. Heart enlarged. The cardiomediastina l contours are unremarkable. Osseous structures are intact. CONCLUSION: Bibasilar opacities. Electronically signed by: Chong Rollins MD 12/24/2017 5:04 PM EDT
[2017-12-24 17:09] LABS: ABG Base Excess 2.8 mmol/L (-2-2); ABG PCO2 51 mmHg (38-42); ABG PO2 64 mmHg (61-120)
--- NOTE | 2017-12-24 17:44 | MB ---
cc: Fermin Christensen MD DATE: 12/24/2017 REASON FOR CONSULTATION: Morbid obesity, question of sleep apnea. HISTORY OF PRESENT ILLNESS: The patient is a 67-year-old female admitted to the hospital with altered mental status. The previous episodes have been attributed to taking excess medication at home. The patient is less confused, more responsive at present. She does have diabetes which is poorly controlled. She denies shortness of breath, fever, chills, cough, or expectoration. CT scan of the brain was without acute abnormality. PAST MEDICAL HISTORY: Chronic kidney disease, hypertension, diabetes mellitus, DVT, coronary artery disease by previous myocardial infarction, hyperlipidemia, mood disorder, namely depression. SOCIAL HISTORY: She does not smoke, does not drink. No TB. No industrial exposure. FAMILY HISTORY: Noncontributory. MEDICATIONS UPON PRESENTATION: 1. Tylenol. 2. Milk of Magnesia. 3. Ecotrin. 4. Coreg. 5. Pepcid. 6. Lasix. 7. Risperdal 8. Senokot. 9. Zoloft. ALLERGIES: NONE KNOWN TO MEDICATION. REVIEW OF SYSTEMS: A 12-point review of systems as per HPI and past history. Otherwise negative. PHYSICAL EXAMINATION: GENERAL: The patient is alert. VITAL SIGNS: Temperature 97.5, pulse 60, respiration 16, blood pressure 160/60, oxygen saturation 95%-98% on room air. HEENT: Unremarkable. Eyes are without icterus. NECK: No adenopathy or thyroid enlargement. Central trachea. CHEST: No dullness to percussion. Clear to auscultation. CARDIAC: PMI not appreciated. S1, S2 audible. A 1/6 soft ejection systolic murmur, left sternal border. ABDOMEN: Obese, lax. Bowel sounds audible. EXTREMITIES: No clubbing, cyanosis, or edema. SKIN: Normal. LYMPHATICS: No lymphadenopathy. LABORATORY DATA: White count 3000, hemoglobin 9.9, hematocrit 27, platelets 238,000. Sodium 137, potassium 4.5, BUN 44, creatinine 1.8. RPR nonreactive. ASSESSMENT AND PLAN: 1. Altered mental status, improving. 2. Morbid obesity. 3. Obstructive and/or central sleep apnea, suspect. 4. Hypertension. 5. Chronic kidney disease. 6. Diabetes mellitus. PLAN: The patient is with morbid obesity, and indeed, either obstructive sleep apnea or obesity hypoventilation may be present. She is obviously with excessive daytime sleepiness. However, she is alert at present, and I could not get a detailed sleep history. Her history is not very reliable. I would obtain baseline arterial blood gas, thyroid stimulating hormone level, as well as baseline lung function if at all possible. Post-discharge, a polysomnographic evaluation would be appropriate. The patient should be encouraged to exercise and lose weight. We will follow her course along with you and depending on progress proceed further. I do thank you for asking me to participate in Ms. Hilliard's care. MD SEDA Muller/[email or web address]/[email or web address] , 04:38 PM , 04:47 PM
--- NOTE | 2017-12-24 20:53 | MB ---
cc: Suhail Silveira MD DATE: 12/24/2017 CHIEF COMPLAINT: Fall. CONSULTING PHYSICIAN: Gilberto Griffiths MD HISTORY OF PRESENT ILLNESS: The patient is a 67-year-old female who is status post fall from bed. The patient was initially seen in the [facility] emergency department with noting altered mental status and landed on the floor of the bedroom with a blood sugar of 34. She was initially uncooperative and agitated and was transported to the emergency department for further evaluation including a CT scan of the head, which questioned intracranial hemorrhage versus streak artifact. On further questioning, the patient was noted to have fallen, again noted to have a very low blood sugar. She denies any loss of consciousness or hitting her head. She fell on her knees and is not complaining of focal neuro deficits or any more onset and change of neurologic status. The patient is Beninese speaking and upon evaluation is answering questions appropriately. She is awake, alert and oriented. The patient is noted to have multiple medical issues and is currently admitted to the ICU under close observation. After further examination, the CT scan favored streak artifact more than any type of intracranial hemorrhage. PAST MEDICAL HISTORY: Hypertension, anxiety, back pain, hypercholesteremia, heart attack, arthritis, DVT, diabetes, kidney disease. PAST SURGICAL HISTORY: Hysterectomy. SOCIAL HISTORY: Denies ETOH, smoking, or IVDA. ALLERGIES: NO KNOWN DRUG ALLERGIES. MEDICATIONS: See electronic medical record. FAMILY HISTORY: Denies diabetes or hypertension. REVIEW OF SYSTEMS: A 12-point review of systems is negative otherwise except for as above. PHYSICAL EXAMINATION: GENERAL: The patient in no acute distress. VITAL SIGNS: Temperature 99.4, pulse 56, respirations 28, blood pressure 159/71, saturation 100%. HEENT: Pupils equal, round, reactive. NECK: Supple. Clavicles nontender. HEART: S1, S2. Regular. ABDOMEN: Soft, nontender, nondistended. LUNGS: Bilateral expansion, clear. Pelvis stable. EXTREMITIES: Warm and well perfused. NEUROLOGIC: GCS 15, 5/5 motor in all extremities. PSYCHIATRIC: Appropriate mood, appropriate insight. LABORATORY AND DIAGNOSTIC DATA: WBC 3.1, hemoglobin 9.9, hematocrit 27.5, platelets 238. Sodium 137, potassium 4.5, chloride 99, BUN 44, creatinine 1.8. Glucose on admission, 34. Bilateral knee x-rays: Arthritis, no evidence of fracture. Head CT: Questionable streak artifact versus hemorrhage, after review with the radiologist more favoring streak artifact, left frontal lobe. ASSESSMENT AND PLAN: The patient is a 67-year-old female with multiple medical issues status post fall, hypoglycemic episode. Rule out trauma and rule out intracranial hemorrhage. PLAN: After full clinical workup, the patient was with above above-named issues. At this point, discussed with neurosurgery who agrees likely streak artifact rather than any signs of acute intracranial hemorrhage. At this point, the patient is cleared from a trauma standpoint. We will sign off. Recommend full medical management and correction of electrolytes and improvement of blood sugar and close monitoring. Again, we will defer to ISC and refinery operator alkylation for further workup and management. Suhail Silveira MD LSN/ct , 07:57 PM , 08:09 PM
[2017-12-25] MEDS: Heparin - SQ 10,000 UNITS/ML Vial SQ SCH ×2 (00:12→13:32)
[2017-12-25] MEDS: Chlorhexidine Gluconate 2% 1 Pack (2 Cloths) TOPICAL SCH (05:22)
[2017-12-25] MEDS: Carvedilol 12.5 MG Tablet PO SCH ×2 (09:03→21:38)
[2017-12-25] MEDS: Sertraline 50 MG Tablet PO SCH (09:04)
[2017-12-25] MEDS: Furosemide 40 MG Tablet PO SCH (09:04)
[2017-12-25] MEDS: Levothyroxine 100 MCG Tablet PO SCH (09:04)
[2017-12-25] MEDS: Famotidine 20 MG Tablet PO SCH ×2 (09:04→21:38)
[2017-12-25] MEDS: Insulin NovoLOG Aspart Correctional Sugar Inj SQ SCH (09:08)
--- NOTE | 2017-12-25 10:23 | P.PNIM ---
Subjective Interval history: Is very somnolent. Used over the phone reliability technicians. She says she is in [place], however when asked the year keeps repeating [place]. Nursing reports that patient kept taking the BiPAP off all night Physical Exam Vital signs: Vital Signs 12/24/17 12:00 12/24/17 16:00 12/24/17 20:00 Temperature 97.4 F L 97.4 F L 97.8 F Pulse Rate 56 L 65 72 Respiratory Rate 16 16 21 Blood Pressure 167/65 H 153/67 H 142/64 H Pulse Oximetry 98 90 L 90 L 12/24/17 21:39 12/25/17 00:00 12/25/17 03:47 Temperature 97.4 F L 98 F Pulse Rate 64 60 Respiratory Rate 20 18 Blood Pressure 136/62 144/60 H Pulse Oximetry 94 L 91 L 98 12/25/17 04:00 12/25/17 08:00 Temperature 98.0 F Pulse Rate 64 61 Respiratory Rate 20 Blood Pressure 117/76 Pulse Oximetry 100 Intake & Output 12/24/17 12/25/17 12/25/17 18:59 06:59 18:59 Intake Total 600 / 600 240 / 240 Balance 600 / 600 240 / 240 Weight 128 kg Intake: Oral 600 / 600 240 / 240 Other: # Voids 2 1 # Bowel Movements 1 Narrative: GENERAL: Patient lying in bed. Obese. She is somnolent about the same as yesterday. Appears she ate half of her breakfast however. To be protecting her airway SKIN: Warm and dry. HEAD: Normocephalic. EYES: No scleral icterus. No injection or drainage. NECK: Supple, trachea midline. No JVD. CARDIOVASCULAR: Regular rate and rhythm without murmurs, gallops, or rubs. RESPIRATORY: Breath sounds equal bilaterally. No accessory muscle use. GASTROINTESTINAL: Abdomen soft, non-tender, nondistended. MUSCULOSKELETAL: No cyanosis, or edema. BACK: Nontender without obvious deformity. No CVA tenderness. - Urinary Catheter Management Indwelling Urethral Catheter Cath placed during this visit: no Results - Labs CBC & Chem 7: 12/23/17 06:01 Laboratory Results - last 24 hr 12/24/17 12/24/17 12/24/17 12:35 16:59 19:43 Puncture Site Left radial Patient Temperature 98.6 O2 Saturation 89 L* ABG pH 7.36 L ABG pCO2 51 H* ABG pO2 64 ABG HCO3 28 H ABG O2 Content 12.1 ABG Base Excess 2.8 H ABG Methemoglobin 1.1 Eben Test Present Hemoglobin 9.7 L Carboxyhemoglobin 1.7 O2 Delivery Device Ra Inspired O2 21 Critical Value Yes POC Glucose 206 H TSH 1.900 12/24/17 12/25/17 20:52 08:25 Puncture Site Patient Temperature O2 Saturation ABG pH ABG pCO2 ABG pO2 ABG HCO3 ABG O2 Content ABG Base Excess ABG Methemoglobin Eben Test Hemoglobin Carboxyhemoglobin O2 Delivery Device Inspired O2 Critical Value POC Glucose 276 H 186 H TSH - Imaging Impressions Chest X-Ray 12/24/17 16:29 CONCLUSION: Bibasilar opacities. - Procedures None Assessment and Plan - Assessment (1) Encephalopathy, metabolic Code(s): G93.41 - Metabolic encephalopathy Status: Acute (2) Poorly controlled diabetes mellitus Code(s): E11.65 - Type 2 diabetes mellitus with hyperglycemia Status: Acute (3) Hypoglycemia associated with diabetes Code(s): E11.649 - Type 2 diabetes mellitus with hypoglycemia without coma Status: Acute - Plan TSH pending. 67-year-old female with //Metabolic encephalopathy Now resolved It was due to severe episode of hypoglycemia. = Patient on chronic narcotics for diffuse pain. This pain is likely exacerbated by untreated sleep apnea, patient noncompliant with CPAP. She will need a new CPAP as an outpatient. =12/24 Patient very somnolent today. Malignant sleep apnea. Pulmonology consult. Have ordered CPAP. Instructed patient to sleep on her side while in the hospital. = 12/25. He continues with severe sleep apnea. Patient with variable medical compliance at home. Suspect she does not even take Risperdal at home, just as needed. Will discontinue Risperdal here. Will start on modafinil for alertness. //Affected obstructive sleep apnea //Chronic narcotic use Patient very concerned with following up to receive narcotic prescriptions from pain management tomorrow. I believe she has chronic untreated sleep apnea for which she is noncompliant with CPAP. Recommend avoiding all narcotics. You need to follow with pulmonology as outpatient to get a CPAP. = Very severe sleep apnea. Will start on CPAP. Pending pulmonology consultation. = Continues with very severe sleep apnea, somnolence. Appreciate pulmonary assistance. //Hypoglycemia associated with type 2 diabetes Will hold basal insulin Continue treatment per hypoglycemia protocol = Have ordered environmental educator. Patient will no longer need insulin. = We will start on low-dose glipizide. //Diabetes type 2 Hold home medications //Kidney disease stage III. Creatinine around baseline. Avoid nephrotoxins. //CT of the head demonstrated hyperdensity in the left frontal lobe most consistent with artifact rather than intracranial hemorrhage. Appreciate input from neurosurgery, no indication for further study //Other chronic medical conditions Continue outpatient medications //DVT prophylaxis: Bilateral SCDs Discharge Planning: Hopefully discharge home with home health tomorrow. --We will need to talk with family
[2017-12-25] MEDS: glipiZIDE 5 MG Tablet PO SCH ×2 (13:31→17:15)
[2017-12-25] MEDS: Ferrous Sulfate 325 MG Tablet PO SCH ×2 (13:32→17:15)
[2017-12-25] MEDS: Modafinil 200 MG Tablet PO SCH (13:32)
--- NOTE | 2017-12-25 17:34 | P.PN ---
Subjective Interval history: alert NAD Physical Exam Vital signs: Vital Signs 12/24/17 20:00 12/24/17 21:39 12/25/17 00:00 Temperature 97.8 F 97.4 F L Pulse Rate 72 64 Respiratory Rate 21 20 Blood Pressure 142/64 H 136/62 Pulse Oximetry 90 L 94 L 91 L 12/25/17 03:47 12/25/17 04:00 12/25/17 08:00 Temperature 98 F 98.0 F Pulse Rate 60 64 58 L Respiratory Rate 18 20 Blood Pressure 144/60 H 117/76 Pulse Oximetry 98 100 12/25/17 12:00 Temperature 98.0 F Pulse Rate 70 Respiratory Rate 20 Blood Pressure 155/67 H Pulse Oximetry 92 L Intake & Output 12/24/17 12/25/17 12/25/17 18:59 06:59 18:59 Intake Total 600 / 600 240 / 240 Balance 600 / 600 240 / 240 Weight 128 kg Intake: Oral 600 / 600 240 / 240 Other: # Voids 2 1 # Bowel Movements 1 Narrative: GENERAL: Patient lying in bed. Obese. She is somnolent about the same as yesterday. Appears she ate half of her breakfast however. To be protecting her airway SKIN: Warm and dry. HEAD: Normocephalic. EYES: No scleral icterus. No injection or drainage. NECK: Supple, trachea midline. No JVD. CARDIOVASCULAR: Regular rate and rhythm without murmurs, gallops, or rubs. RESPIRATORY: Breath sounds equal bilaterally. No accessory muscle use. GASTROINTESTINAL: Abdomen soft, non-tender, nondistended. MUSCULOSKELETAL: No cyanosis, or edema. BACK: Nontender without obvious deformity. No CVA tenderness. - Urinary Catheter Management Indwelling Urethral Catheter Cath placed during this visit: no Results - Labs CBC & Chem 7: 12/23/17 06:01 Laboratory Results - last 24 hr 12/24/17 12/24/17 12/25/17 19:43 20:52 08:25 POC Glucose 276 H 186 H TSH 1.900 12/25/17 12/25/17 13:15 17:10 POC Glucose 194 H 225 H TSH - Procedures None Assessment and Plan - Plan IMPRESSIN RESPIRATORY FAILURE DEANNE/CSA CHRONIC COMPENSATED RESPIRATORY FAILURE DM HTN CKD MORBID OBESITY PLAN O2 NEEDED LOOSE WT PULM LASHAWN;ET NPSG POST D/C
[2017-12-26] MEDS: Heparin - SQ 10,000 UNITS/ML Vial SQ SCH ×3 (00:46→22:33)
[2017-12-26 02:59] LABS: Eos % (Auto) 1.5 % (0.0-4.0); Hematocrit 24.9 % (35.0-46.0); Hemoglobin 8.9 gm/dL (11.6-15.3); Lymph # (Auto) 0.7 th/mm3 (1.0-4.8); Lymph % (Auto) 31.8 % (9.0-44.0); Mean Corpuscular HGB Conc 35.8 % (32.0-36.0); Mean Corpuscular Hemoglobin 36.7 pg (27.0-34.0); Mean Corpuscular Volume 102.3 fL (80.0-100.0); Mean Platelet Volume 7.5 fL (7.0-11.0); Mono # (Auto) 0.4 th/mm3 (0.0-0.9); Neut # (Auto) 1.1 th/mm3 (1.8-7.7); Neut % (Auto) 48.7 % (16.0-70.0); Platelet Count 216 th/mm3 (150-450); Red Blood Count 2.43 mil/mm3 (4.00-5.30); White Blood Count 2.3 th/mm3 (4.0-11.0)
[2017-12-26 03:34] LABS: Albumin 3.1 g/dL (3.4-5.0); Magnesium 1.5 mg/dL (1.5-2.5); Phosphorus 3.4 mg/dL (2.5-4.9); Potassium 4.3 meq/L (3.5-5.1)
[2017-12-26] MEDS: Chlorhexidine Gluconate 2% 1 Pack (2 Cloths) TOPICAL SCH (05:13)
[2017-12-26] MEDS: Famotidine 20 MG Tablet PO SCH ×2 (08:59→21:10)
[2017-12-26] MEDS: Sertraline 50 MG Tablet PO SCH (09:00)
[2017-12-26] MEDS: Levothyroxine 100 MCG Tablet PO SCH (09:00)
[2017-12-26] MEDS: Carvedilol 12.5 MG Tablet PO SCH ×2 (09:00→21:10)
[2017-12-26] MEDS: Modafinil 200 MG Tablet PO SCH (09:00)
[2017-12-26] MEDS: Furosemide 40 MG Tablet PO SCH (09:00)
[2017-12-26] MEDS: glipiZIDE 5 MG Tablet PO SCH ×2 (09:01→17:24)
--- NOTE | 2017-12-26 10:08 | P.PNIM ---
Subjective Interval history: Patient is more awake today but says she is cold. She reports pleuritic type left-sided parasternal chest pain, nonradiating. Tender to palpation Physical Exam Vital signs: Vital Signs 12/25/17 12:00 12/25/17 15:00 12/25/17 16:00 Temperature 98.0 F 97.8 F Pulse Rate 58 L 58 L Respiratory Rate 20 18 20 Blood Pressure 155/67 H 141/66 H Pulse Oximetry 92 L 90 L 12/25/17 17:42 12/25/17 20:00 12/26/17 00:00 Temperature 97.4 F L 97.4 F L Pulse Rate 73 62 Respiratory Rate 18 18 Blood Pressure 143/65 H 112/58 L Pulse Oximetry 92 L 90 L 94 L 12/26/17 03:00 12/26/17 04:00 12/26/17 08:00 Temperature 98 F 98.1 F 97.3 F L Pulse Rate 57 L 62 58 L Respiratory Rate 18 18 16 Blood Pressure 168/81 H 149/63 H 169/67 H Pulse Oximetry 93 L 95 94 L Intake & Output 12/25/17 12/26/17 12/26/17 18:59 06:59 18:59 Intake Total 840 / 840 210 / 210 Balance 840 / 840 210 / 210 Intake: Oral 840 / 840 210 / 210 Other: # Voids 5 400 Date of Last Bowel Movement 12/25/17 Narrative: GENERAL: Patient lying in bed. Awake. Alert. Still disoriented to year, however oriented to month. SKIN: Warm and dry. HEAD: Normocephalic. EYES: No scleral icterus. No injection or drainage. NECK: Supple, trachea midline. No JVD. CARDIOVASCULAR: Regular rate and rhythm without murmurs, gallops, or rubs. RESPIRATORY: Breath sounds equal bilaterally. No accessory muscle use. GASTROINTESTINAL: Abdomen soft, non-tender, nondistended. MUSCULOSKELETAL: No cyanosis, or edema. BACK: Nontender without obvious deformity. No CVA tenderness. - Urinary Catheter Management Indwelling Urethral Catheter Cath placed during this visit: no Results - Labs CBC & Chem 7: 12/26/17 02:30 12/26/17 02:30 Laboratory Results - last 24 hr 12/25/17 12/25/17 12/26/17 13:15 17:10 02:30 WBC 2.3 L RBC 2.43 L Hgb 8.9 L Hct 24.9 L MCV 102.3 H MCH 36.7 H MCHC 35.8 RDW 14.0 Plt Count 216 MPV 7.5 Neut % (Auto) 48.7 Lymph % (Auto) 31.8 [place] % (Auto) 17.0 H Eos % (Auto) 1.5 Baso % (Auto) 1.0 Neut # (Auto) 1.1 L Lymph # (Auto) 0.7 L [place] # (Auto) 0.4 Eos # (Auto) 0.0 Baso # (Auto) 0.0 WBC Differential . Differential Comment Auto diff final Sodium Potassium Chloride Carbon Dioxide Anion Gap BUN Creatinine Estimated GFR POC Glucose 194 H 225 H Random Glucose Calcium Phosphorus Magnesium Albumin 12/26/17 02:30 WBC RBC Hgb Hct MCV MCH MCHC RDW Plt Count MPV Neut % (Auto) Lymph % (Auto) [place] % (Auto) Eos % (Auto) Baso % (Auto) Neut # (Auto) Lymph # (Auto) [place] # (Auto) Eos # (Auto) Baso # (Auto) WBC Differential Differential Comment Sodium 140 Potassium 4.3 Chloride 101 Carbon Dioxide 30.0 Anion Gap 9 BUN 42 H Creatinine 2.05 H Estimated GFR 24 L POC Glucose Random Glucose 153 H Calcium 9.0 Phosphorus 3.4 Magnesium 1.5 Albumin 3.1 L - Procedures None Assessment and Plan - Assessment (1) Encephalopathy, metabolic Code(s): G93.41 - Metabolic encephalopathy Status: Acute (2) Poorly controlled diabetes mellitus Code(s): E11.65 - Type 2 diabetes mellitus with hyperglycemia Status: Acute (3) Hypoglycemia associated with diabetes Code(s): E11.649 - Type 2 diabetes mellitus with hypoglycemia without coma Status: Acute - Plan TSH pending. 67-year-old female with //Metabolic encephalopathy Now resolved It was due to severe episode of hypoglycemia. = Patient on chronic narcotics for diffuse pain. This pain is likely exacerbated by untreated sleep apnea, patient noncompliant with CPAP. She will need a new CPAP as an outpatient. =12/24 Patient very somnolent today. Malignant sleep apnea. Pulmonology consult. Have ordered CPAP. Instructed patient to sleep on her side while in the hospital. = 12/25. He continues with severe sleep apnea. Patient with variable medical compliance at home. Suspect she does not even take Risperdal at home, just as needed. Will discontinue Risperdal here. Will start on modafinil for alertness. = 12/26. Reviewing old records, patient appears to have a B12 deficiency with B12 early this year in the 180s. Will recheck B12, methylmalonic acid. Will start IM supplementation. Continue modafinil. //B12 deficiency //Leukopenia //Anemia. Chronic. Back ascitic. Likely secondary to B12 deficiency. With iron supplementation. Hematology consulted. //Atypical left-sided chest pain -Tender to palpation. Likely costochondritis. We will check EKG, chest x-ray. D-dimer, bilateral lower extremity ultrasounds. Patient has been on heparin but does have history of DVT in the past. //Affected obstructive sleep apnea //Chronic narcotic use Patient very concerned with following up to receive narcotic prescriptions from pain management tomorrow. I believe she has chronic untreated sleep apnea for which she is noncompliant with CPAP. Recommend avoiding all narcotics. You need to follow with pulmonology as outpatient to get a CPAP. = Very severe sleep apnea. Will start on CPAP. Pending pulmonology consultation. = Continues with very severe sleep apnea, somnolence. Appreciate pulmonary assistance. //Hypoglycemia associated with type 2 diabetes //Type 2 diabetes Will hold basal insulin Continue treatment per hypoglycemia protocol = Have ordered family educator. Patient will no longer need insulin. = Blood sugars acceptable on low-dose glipizide. Continue to monitor //Kidney disease stage III. Creatinine around baseline. Avoid nephrotoxins. = 12/26. Patient will dehydrated. Will start on maintenance fluids. //CT of the head demonstrated hyperdensity in the left frontal lobe most consistent with artifact rather than intracranial hemorrhage. Appreciate input from neurosurgery, no indication for further study //Other chronic medical conditions Continue outpatient medications //DVT prophylaxis: Bilateral SCDs Discharge Planning: Hopefully discharge home with home health
--- NOTE | 2017-12-26 11:24 | US ---
EXAM DATE: 12/26/2017 12:00 AM EDT AGE/SEX: 67 years / Female INDICATIONS: Bilateral leg pain. CLINICAL DATA: This is the patient's initial encounter. Patient reports that signs and symptoms have been present for 1 day and indicates a pain score of 2/10. MEDICAL/SURGICAL HISTORY: Hypercholesterolemia. Hypertension. Anxiety. Arthritis. Back pain. D iabetes. Depression. Deep vein thrombosis. Kidney disease. Myocardial infarction. Hysterectomy. COMPARISON: No prior exams available for comparison. TECHNIQUE: Venous ultrasound of both lower extremities was performed from the inguinal ligament to t he proximal calf. Real-time, color Doppler and spectral tracing, compression and augmentation techni ques were used. FINDINGS: Right Leg: Normal compression of the deep venous system from the inguinal region to the proximal denice f. No echogenic clot is seen. Normal response of the venous system to augmentation and respiration. Left Leg: Normal compression of the deep venous system from the inguinal region to the proximal calf . No echogenic clot is seen. Normal response of the venous system to augmentation and respiration. Other: None. CONCLUSION: 1. The study is negative for bilateral lower extremity deep venous thrombosis. Electronically signed by: Matt Salvador MD 12/26/2017 11:23 AM EDT
--- NOTE | 2017-12-26 12:30 | XR ---
EXAM DATE: 12/26/2017 12:00 AM EDT AGE/SEX: 67 years / Female INDICATIONS: Chest pain. CLINICAL DATA: This is the patient's subsequent encounter. Patient reports that signs and symptoms h ave been present for 4 - 6 days and indicates a pain score of 3/10. MEDICAL/SURGICAL HISTORY: . Cerebrovascular disease. Diabetes. None. COMPARISON: [facility] – [place], CHEST 1V SINGLE AP, 12/24/2017. . FINDINGS: The heart is enlarged. The pulmonary vascular pattern is normal. Minimal bibasilar patchiness is note d. CONCLUSION: 1. Minimal bibasilar patchiness. 2. Cardiomegaly. Electronically signed by: Matt Salvador MD 12/26/2017 12:28 PM EDT
[2017-12-26] MEDS: Sodium Chloride 0.45 % Inj 1,000 ML IV.CONT SCH (12:54)
[2017-12-26] MEDS: Ferrous Sulfate 325 MG Tablet PO SCH ×2 (13:34→17:23)
--- NOTE | 2017-12-26 18:56 | P.PN ---
Subjective Interval history: ALERT SITTING BEDSIDE NO SOB Physical Exam Vital signs: Vital Signs 12/25/17 20:00 12/26/17 00:00 12/26/17 03:00 Temperature 97.4 F L 97.4 F L 98 F Pulse Rate 73 62 57 L Respiratory Rate 18 18 18 Blood Pressure 143/65 H 112/58 L 168/81 H Pulse Oximetry 90 L 94 L 93 L 12/26/17 04:00 12/26/17 08:00 12/26/17 12:00 Temperature 98.1 F 97.3 F L 97.5 F L Pulse Rate 62 58 L 60 Respiratory Rate 18 16 16 Blood Pressure 149/63 H 169/67 H 120/56 L Pulse Oximetry 95 94 L 94 L 12/26/17 16:00 Temperature 97.6 F Pulse Rate 64 Respiratory Rate 16 Blood Pressure 165/79 H Pulse Oximetry 97 Intake & Output 12/25/17 12/26/17 12/26/17 18:59 06:59 18:59 Intake Total 840 / 840 210 / 210 Balance 840 / 840 210 / 210 Intake: Oral 840 / 840 210 / 210 Other: # Voids 5 400 Date of Last Bowel Movement 12/25/17 Narrative: GENERAL: Patient lying in bed. Awake. Alert. Still disoriented to year, however oriented to month. SKIN: Warm and dry. HEAD: Normocephalic. EYES: No scleral icterus. No injection or drainage. NECK: Supple, trachea midline. No JVD. CARDIOVASCULAR: Regular rate and rhythm without murmurs, gallops, or rubs. RESPIRATORY: Breath sounds equal bilaterally. No accessory muscle use. GASTROINTESTINAL: Abdomen soft, non-tender, nondistended. MUSCULOSKELETAL: No cyanosis, or edema. BACK: Nontender without obvious deformity. No CVA tenderness. - Urinary Catheter Management Indwelling Urethral Catheter Cath placed during this visit: no Results - Labs CBC & Chem 7: 12/26/17 02:30 12/26/17 02:30 Laboratory Results - last 24 hr 12/26/17 12/26/17 12/26/17 02:30 02:30 02:30 WBC 2.3 L RBC 2.43 L Hgb 8.9 L Hct 24.9 L MCV 102.3 H MCH 36.7 H MCHC 35.8 RDW 14.0 Plt Count 216 MPV 7.5 Neut % (Auto) 48.7 Lymph % (Auto) 31.8 [place] % (Auto) 17.0 H Eos % (Auto) 1.5 Baso % (Auto) 1.0 Neut # (Auto) 1.1 L Lymph # (Auto) 0.7 L [place] # (Auto) 0.4 Eos # (Auto) 0.0 Baso # (Auto) 0.0 WBC Differential . Differential Comment Auto diff final D-Dimer Quant (PE/DVT) Sodium 140 Potassium 4.3 Chloride 101 Carbon Dioxide 30.0 Anion Gap 9 BUN 42 H Creatinine 2.05 H Estimated GFR 24 L POC Glucose Random Glucose 153 H Calcium 9.0 Phosphorus 3.4 Magnesium 1.5 Albumin 3.1 L Vitamin B12 239 Cortisol 12/26/17 12/26/17 12/26/17 10:20 10:20 18:42 WBC RBC Hgb Hct MCV MCH MCHC RDW Plt Count MPV Neut % (Auto) Lymph % (Auto) [place] % (Auto) Eos % (Auto) Baso % (Auto) Neut # (Auto) Lymph # (Auto) [place] # (Auto) Eos # (Auto) Baso # (Auto) WBC Differential Differential Comment D-Dimer Quant (PE/DVT) 0.43 Sodium Potassium Chloride Carbon Dioxide Anion Gap BUN Creatinine Estimated GFR POC Glucose 305 H Random Glucose Calcium Phosphorus Magnesium Albumin Vitamin B12 Cortisol 21.0 - Imaging Impressions Chest X-Ray 12/26/17 00:00 CONCLUSION: 1. Minimal bibasilar patchiness. 2. Cardiomegaly. Venous Doppler Study 12/26/17 00:00 CONCLUSION: 1. The study is negative for bilateral lower extremity deep venous thrombosis. - Procedures None Assessment and Plan - Plan IMPRESSIN RESPIRATORY FAILURE DEANNE/CSA CHRONIC COMPENSATED RESPIRATORY FAILURE DM HTN CKD MORBID OBESITY PLAN O2 NEEDED LOOSE WT PULM TOILET INCREASE ACTIVITY
--- NOTE | 2017-12-26 22:09 | MB ---
cc: Camryn Faustin MD DATE: 12/26/2017 CHIEF COMPLAINT: Pancytopenia. HISTORY OF PRESENT ILLNESS: Ms. Hilliard is a 67-year-old lady with a history of chronic renal disease, hypertension, morbid obesity, diabetes mellitus, history of blood clot, coronary artery disease, myocardial infarction, hyperlipidemia, mood disorder. She was admitted to the hospital for further evaluation and management of altered mental status. Per chart review, she had a questionable fall and was found to be hypoglycemic. She was uncooperative and agitated and was transferred to the emergency room for further evaluation. CT scan of the head showed a questionable intracranial hemorrhage versus streak artifact. She is being treated for metabolic encephalopathy. She has known vitamin B12 deficiency and anemia, history of chronic sleep apnea, chronic narcotic use, type 2 diabetes. Doppler ultrasound of bilateral lower extremities is negative for DVT. Pulmonary and surgery teams have been consulted while she has been inpatient. PAST MEDICAL HISTORY: Hypertension, anxiety, back pain, hyperlipidemia, coronary artery disease, arthritis, DVT, diabetes, renal disease. ROS as above in HPI all others negative PAST SURGICAL HISTORY: Hysterectomy. SOCIAL HISTORY: Denies alcohol, tobacco or illegal drug use. ALLERGIES: NO KNOWN DRUG ALLERGIES. FAMILY HISTORY: No known family history of blood disorders. HOSPITAL MEDICATIONS: 1. Aspirin. 2. Carvedilol. 3. Pepcid. 4. Iron. 5. Glipizide. 6. Aspart. 7. Labetalol. 8. Lactulose. 9. Senna. 10. Zoloft. 11. Temazepam. 12. Ultram. LABORATORY STUDIES: White blood cell count 2.3. Past values from 12/21/2017 was 4.3 and from 05/2017 was 3.1. Hemoglobin 8.9, from November was 9.3 and from 05/2017 was 9.9. Platelet count is within normal limits and has been within normal limits in the past. ANC is low at 1.1. Absolute lymphocyte count is also low and this has been chronically low in the past. Chemistry studies with a creatinine that is elevated at 2.0. Iron level 83, total iron binding capacity is 475, percent sat is 17.5, ferritin is 27. AST 16, ALT 17, alkaline phosphatase is 58, total bilirubin is 0.3. Folate is 8.2. Vitamin B12 is 239. TSH and free T4 are within normal limits. Urine drug screen is negative from November. PHYSICAL EXAMINATION: GENERAL: Overweight lady, sundowning. She is agitated and reports that she see spiders in her room. Nursing staff is at bedside and they report that she sundowned last night and that she was indeed altered during the day. HEAD: Normocephalic, atraumatic. EYES: PERRLA. EOMI. No scleral icterus. NECK: Supple. No palpable lymphadenopathy. CARDIOVASCULAR: Regular rate and rhythm. No murmurs. RESPIRATORY: Clear to auscultation bilaterally. ABDOMEN: Soft, nontender, nondistended. Bowel sounds present. EXTREMITIES: No edema. NEUROLOGIC: Grossly nonfocal. PSYCHIATRIC: Oriented to person and place, . ASSESSMENT AND PLAN: Pancytopenia. The patient has a normal folate. Vitamin B12 is low at 239. She has been given IM replacement and would recommend oral daily vitamin B12 pills. Iron profile indicates some component of iron deficiency anemia. She has an elevated total iron binding capacity, low percent sat. Ferritin is towards the lower end of normal. Iron itself is normal. Will initiate oral iron supplementation. Will also check stool for occult blood. Will perform flow cytometry. Will a perform a blood smear. Will check LDH, uric acid, PT, PTT, INR, reticulocyte count, ESR and CRP. Will also obtain an abdominal ultrasound to evaluate the liver and spleen. On review of medications, does not seem to be a cause of medication-induced pancytopenia. MD LEANDRO Jacob/tara , 08:41 PM , 08:50 PM NANCY
[2017-12-27 06:18] LABS: Reticulocyte Percent 2.8 % (0.4-3.0)
[2017-12-27 06:19] LABS: Baso % (Auto) 1.1 % (0.0-2.0); Eos % (Auto) 1.6 % (0.0-4.0); Hematocrit 25.7 % (35.0-46.0); Hemoglobin 9.4 gm/dL (11.6-15.3); Lymph # (Auto) 0.8 th/mm3 (1.0-4.8); Lymph % (Auto) 31.2 % (9.0-44.0); Mean Corpuscular Hemoglobin 37.3 pg (27.0-34.0); Mean Corpuscular Volume 102.5 fL (80.0-100.0); Mean Platelet Volume 7.9 fL (7.0-11.0); Mono # (Auto) 0.4 th/mm3 (0.0-0.9); Mono % (Auto) 15.1 % (0.0-8.0); Neut # (Auto) 1.3 th/mm3 (1.8-7.7); Platelet Count 235 th/mm3 (150-450); Red Blood Count 2.51 mil/mm3 (4.00-5.30); Red Cell Distribution Width 14.3 % (11.6-17.2); White Blood Count 2.5 th/mm3 (4.0-11.0)
[2017-12-27 06:22] LABS: Mean Corpuscular HGB Conc 36.4 % (32.0-36.0)
[2017-12-27 06:23] LABS: Activated Partial Thrombo Time 24.5 sec (24.3-30.1)
[2017-12-27 06:44] LABS: Albumin 3.4 g/dL (3.4-5.0); Calcium 9.6 mg/dL (8.5-10.1); Carbon Dioxide 27.2 meq/L (21.0-32.0); Lactate Dehydrogenase 204 U/L (84-246); Magnesium 1.7 mg/dL (1.5-2.5); Phosphorus 3.5 mg/dL (2.5-4.9); Potassium 4.4 meq/L (3.5-5.1); Uric Acid 8.7 mg/dl (2.6-6.0)
[2017-12-27 07:44] LABS: Platelet Estimate Normal (Normal); Platelet Morphology Normal (Normal)
--- NOTE | 2017-12-27 08:09 | US ---
EXAM DATE: 12/27/2017 12:00 AM EDT AGE/SEX: 67 years / Female INDICATIONS: Abnormal labs. CLINICAL DATA: This is the patient's initial encounter. Patient reports that signs and symptoms have been present for 1 day and indicates a pain score of 0/10. MEDICAL/SURGICAL HISTORY: Arthritis. Diabetes. Hypercholesterolemia. Anxiety. Arthritis. B ack pain. Depression. Diabetes. Deep vein thrombosis. Hypercholesterolemia. Hypertension. Kidne y disease. Myocardial infarction. Hysterectomy. COMPARISON: . MEASUREMENTS: Liver:__ 20.9 cm. Common Bile Duct:__ 3mm. Right Kidney:__ 12.0 x 5.1 x 4.2 cm. FINDINGS: Liver: Increased echotexture without focal lesion or ductal dilation. The liver is enlarged measuring 21 cm in length. Portal Vein: Hepatopedal flow seen in portal vein. Common Duct: No intraluminal mass or stone visualized. Gallbladder: Demonstrates no wall thickening or pericholecystic fluid. Stones visualized. Pancreas: The visualized portions are within normal limits Right Kidney: Increased echotexture. No mass or hydronephrosis. The renal cortex appears thin. Other: The spleen is enlarged measuring 14 cm in length. CONCLUSION: 1. Hepatosplenomegaly. 2. Cholelithiasis. 3. Echogenic kidney with thinned renal cortex consistent with medical renal disease. Electronically signed by: Ehsan Lerma MD 12/27/2017 8:08 AM EDT
[2017-12-27 08:32] LABS: Erythrocyte Sedimentation Rate 88 mm/hr (0-30)
[2017-12-27] MEDS: glipiZIDE 5 MG Tablet PO SCH (09:02)
[2017-12-27] MEDS: Carvedilol 12.5 MG Tablet PO SCH ×2 (09:03→22:08)
[2017-12-27] MEDS: Levothyroxine 100 MCG Tablet PO SCH (09:03)
[2017-12-27] MEDS: Famotidine 20 MG Tablet PO SCH ×2 (09:04→22:07)
[2017-12-27] MEDS: Modafinil 200 MG Tablet PO SCH (09:04)
[2017-12-27] MEDS: Sertraline 50 MG Tablet PO SCH (09:05)
[2017-12-27] MEDS: Sodium Chloride 0.45 % Inj 1,000 ML IV.CONT SCH (10:30)
[2017-12-27] MEDS ORDERED: Sodium Chlor 0.9% Inj 500 ML IV.SIG SCH (11:00)
--- NOTE | 2017-12-27 12:32 | P.PNIM ---
Subjective Interval history: Actually appears more alert today. Still confused and disoriented Physical Exam Vital signs: Vital Signs 12/26/17 16:00 12/26/17 20:00 12/27/17 00:00 Temperature 97.6 F 98.1 F 98 F Pulse Rate 72 64 65 Respiratory Rate 16 20 20 Blood Pressure 165/79 H 129/69 147/65 H Pulse Oximetry 97 95 92 L 12/27/17 04:00 12/27/17 08:00 Temperature 98.6 F 97.3 F L Pulse Rate 64 57 L Respiratory Rate 20 20 Blood Pressure 156/69 H 138/61 Pulse Oximetry 97 98 Intake & Output 12/26/17 12/27/17 12/27/17 18:59 06:59 18:59 Intake Total 720 / 720 210 / 210 1000 / 1000 Output Total 500 / 500 Balance 720 / 720 -290 / -290 1000 / 1000 Intake: IV 1000 / 1000 1/2 Normal Saline Inj 1,000 ML 1000 / 1000 @ 42 mls/hr IV.CONT .[id number] [facility] Rx#:[id number] Oral 720 / 720 210 / 210 Output: Urine 500 / 500 Other: # Voids 3 2 Date of Last Bowel Movement 12/25/17 12/25/17 # Bowel Movements 0 Narrative: GENERAL: Patient lying in bed. Awake. Alert. Still disoriented to year, disoriented to month. SKIN: Warm and dry. HEAD: Normocephalic. EYES: No scleral icterus. No injection or drainage. NECK: Supple, trachea midline. No JVD. CARDIOVASCULAR: Regular rate and rhythm without murmurs, gallops, or rubs. RESPIRATORY: Breath sounds equal bilaterally. No accessory muscle use. GASTROINTESTINAL: Abdomen soft, non-tender, nondistended. MUSCULOSKELETAL: No cyanosis, or edema. BACK: Nontender without obvious deformity. No CVA tenderness. - Urinary Catheter Management Indwelling Urethral Catheter Cath placed during this visit: no Results - Labs CBC & Chem 7: 12/27/17 05:36 12/27/17 05:36 Laboratory Results - last 24 hr 12/26/17 12/27/17 12/27/17 18:42 05:36 05:36 WBC RBC Hgb Hct MCV MCH MCHC RDW Plt Count MPV Prelim Diff (Auto) Neut % (Auto) Lymph % (Auto) [place] % (Auto) Eos % (Auto) Baso % (Auto) Neut # (Auto) Lymph # (Auto) [place] # (Auto) Eos # (Auto) Baso # (Auto) WBC Differential Diff Scan Differential Comment Platelet Estimate Platelet Morphology Smear Path Review ESR 88 H Retic Count Absolute Retic APTT 24.5 Fibrinogen 333 Sodium Potassium Chloride Carbon Dioxide Anion Gap BUN Creatinine Estimated GFR POC Glucose 305 H Random Glucose Uric Acid Calcium Phosphorus Magnesium Lactate Dehydrogenase C-Reactive Protein Albumin 12/27/17 12/27/17 12/27/17 05:36 05:36 05:36 WBC 2.5 L RBC 2.51 L Hgb 9.4 L Hct 25.7 L MCV 102.5 H MCH 37.3 H MCHC 36.4 H RDW 14.3 Plt Count 235 MPV 7.9 Prelim Diff (Auto) Slide review pending Neut % (Auto) 51.0 Lymph % (Auto) 31.2 Grady % (Auto) 15.1 H Eos % (Auto) 1.6 Baso % (Auto) 1.1 Neut # (Auto) 1.3 L Lymph # (Auto) 0.8 L [place]ady # (Auto) 0.4 Eos # (Auto) 0.0 Baso # (Auto) 0.0 WBC Differential . Diff Scan Auto diff confirmed Differential Comment . Platelet Estimate Normal Platelet Morphology Normal Smear Path Review ESR Retic Count 2.8 Absolute Retic 70.2 APTT Fibrinogen Sodium Potassium Chloride Carbon Dioxide Anion Gap BUN Creatinine Estimated GFR POC Glucose Random Glucose Uric Acid 8.7 H Calcium Phosphorus Magnesium Lactate Dehydrogenase 204 C-Reactive Protein Less than 0.29 Albumin 12/27/17 05:36 WBC RBC Hgb Hct MCV MCH MCHC RDW Plt Count MPV Prelim Diff (Auto) Neut % (Auto) Lymph % (Auto) [place] % (Auto) Eos % (Auto) Baso % (Auto) Neut # (Auto) Lymph # (Auto) [place] # (Auto) Eos # (Auto) Baso # (Auto) WBC Differential Diff Scan Differential Comment Platelet Estimate Platelet Morphology Smear Path Review ESR Retic Count Absolute Retic APTT Fibrinogen Sodium 135 L Potassium 4.4 Chloride 96 L Carbon Dioxide 27.2 Anion Gap 12 BUN 52 H Creatinine 2.23 H Estimated GFR 22 L POC Glucose Random Glucose 231 H Uric Acid Calcium 9.6 Phosphorus 3.5 Magnesium 1.7 Lactate Dehydrogenase C-Reactive Protein Albumin 3.4 - Imaging Impressions Chest X-Ray 12/26/17 00:00 CONCLUSION: 1. Minimal bibasilar patchiness. 2. Cardiomegaly. Liver Ultrasound 12/27/17 00:00 CONCLUSION: 1. Hepatosplenomegaly. 2. Cholelithiasis. 3. Echogenic kidney with thinned renal cortex consistent with medical renal disease. - Procedures None Assessment and Plan - Assessment (1) Encephalopathy, metabolic Code(s): G93.41 - Metabolic encephalopathy Status: Acute (2) Poorly controlled diabetes mellitus Code(s): E11.65 - Type 2 diabetes mellitus with hyperglycemia Status: Acute (3) Hypoglycemia associated with diabetes Code(s): E11.649 - Type 2 diabetes mellitus with hypoglycemia without coma Status: Acute - Plan TSH pending. 67-year-old female with //Metabolic encephalopathy Now resolved It was due to severe episode of hypoglycemia. = Patient on chronic narcotics for diffuse pain. This pain is likely exacerbated by untreated sleep apnea, patient noncompliant with CPAP. She will need a new CPAP as an outpatient. =12/24 Patient very somnolent today. Malignant sleep apnea. Pulmonology consult. Have ordered CPAP. Instructed patient to sleep on her side while in the hospital. = 12/25. He continues with severe sleep apnea. Patient with variable medical compliance at home. Suspect she does not even take Risperdal at home, just as needed. Will discontinue Risperdal here. Will start on modafinil for alertness. = 12/26. Reviewing old records, patient appears to have a B12 deficiency with B12 early this year in the 180s. Will recheck B12, methylmalonic acid. Will start IM supplementation. Continue modafinil. = 12/27. Will repeat CT head to rule out subdural hematoma. Continue B12 supplementation. Appreciate hematology assistance. //B12 deficiency //Leukopenia //Anemia. Chronic. Back ascitic. Likely secondary to B12 deficiency. With iron supplementation. Hematology consulted. //Atypical left-sided chest pain -Tender to palpation. Likely costochondritis. We will check EKG, chest x-ray. D-dimer, bilateral lower extremity ultrasounds. Patient has been on heparin but does have history of DVT in the past. //Affected obstructive sleep apnea //Chronic narcotic use Patient very concerned with following up to receive narcotic prescriptions from pain management tomorrow. I believe she has chronic untreated sleep apnea for which she is noncompliant with CPAP. Recommend avoiding all narcotics. You need to follow with pulmonology as outpatient to get a CPAP. = Very severe sleep apnea. Will start on CPAP. Pending pulmonology consultation. = Continues with very severe sleep apnea, somnolence. Appreciate pulmonary assistance. //Hypoglycemia associated with type 2 diabetes //Type 2 diabetes Will hold basal insulin Continue treatment per hypoglycemia protocol = Have ordered staff educator. Patient will no longer need insulin. = Blood sugars acceptable on low-dose glipizide. Continue to monitor = 12/27. Blood sugars elevated in the 200s. Will increase glipizide. //Acute kidney injury on kidney disease stage III. Creatinine around baseline. Avoid nephrotoxins. = 12/26. Patient will dehydrated. Will start on maintenance fluids. = 12/27. Maintenance fluids discontinued yesterday due to IV coming out. Will replace IV as creatinine up to 2.2 today. Maintenance fluids. //CT of the head demonstrated hyperdensity in the left frontal lobe most consistent with artifact rather than intracranial hemorrhage. Appreciate input from neurosurgery, no indication for further study //Other chronic medical conditions Continue outpatient medications //DVT prophylaxis: Bilateral SCDs Discharge Planning: Hopefully discharge home with home health
--- NOTE | 2017-12-27 13:28 | ECG ---
Date Performed: 12/26/2017 Time Performed: 11:56:56 PTAGE: 67 years EKG: Sinus rhythm . Lateral T wave changes are nonspecific Borderline ECG PREVIOUS TRACING : 11/30/2012 00.05 DOCTOR: Kayleigh Pantoja Interpretating Date/Time 12/27/2017 13:17:13
[2017-12-27] MEDS: Ferrous Sulfate 325 MG Tablet PO SCH ×2 (13:49→17:26)
[2017-12-27] MEDS: Heparin - SQ 10,000 UNITS/ML Vial SQ SCH ×2 (13:50→22:09)
--- NOTE | 2017-12-27 14:09 | P.PNONC ---
Subjective Interval history: Afebrile Patient reports she has been walking around her room Denies chest pain or shortness of breath No chills Objective Vital Signs/Intake & Output: Vital Signs 12/26/17 16:00 12/26/17 20:00 12/27/17 00:00 Temperature 97.6 F 98.1 F 98 F Pulse Rate 72 64 65 Respiratory Rate 16 20 20 Blood Pressure 165/79 H 129/69 147/65 H Pulse Oximetry 97 95 92 L 12/27/17 04:00 12/27/17 08:00 Temperature 98.6 F 97.3 F L Pulse Rate 64 57 L Respiratory Rate 20 20 Blood Pressure 156/69 H 138/61 Pulse Oximetry 97 98 Intake & Output 12/26/17 12/27/17 12/27/17 18:59 06:59 18:59 Intake Total 720 / 720 210 / 210 1000 / 1000 Output Total 500 / 500 Balance 720 / 720 -290 / -290 1000 / 1000 Intake: IV 1000 / 1000 1/2 Normal Saline Inj 1,000 ML 1000 / 1000 @ 42 mls/hr IV.CONT .[id number] [facility] Rx#:[id number] Oral 720 / 720 210 / 210 Output: Urine 500 / 500 Other: # Voids 3 2 Date of Last Bowel Movement 12/25/17 12/25/17 # Bowel Movements 0 Result Diagrams: 12/27/17 05:36 12/27/17 05:36 Laboratory Results: Laboratory Results - last 24 hr 12/26/17 12/27/17 12/27/17 18:42 05:36 05:36 WBC RBC Hgb Hct MCV MCH MCHC RDW Plt Count MPV Prelim Diff (Auto) Neut % (Auto) Lymph % (Auto) [place] % (Auto) Eos % (Auto) Baso % (Auto) Neut # (Auto) Lymph # (Auto) [place] # (Auto) Eos # (Auto) Baso # (Auto) WBC Differential Diff Scan Differential Comment Platelet Estimate Platelet Morphology Smear Path Review ESR 88 H Retic Count Absolute Retic APTT 24.5 Fibrinogen 333 Sodium Potassium Chloride Carbon Dioxide Anion Gap BUN Creatinine Estimated GFR POC Glucose 305 H Random Glucose Uric Acid Calcium Phosphorus Magnesium Lactate Dehydrogenase C-Reactive Protein Albumin 12/27/17 12/27/17 12/27/17 05:36 05:36 05:36 WBC 2.5 L RBC 2.51 L Hgb 9.4 L Hct 25.7 L MCV 102.5 H MCH 37.3 H MCHC 36.4 H RDW 14.3 Plt Count 235 MPV 7.9 Prelim Diff (Auto) Slide review pending Neut % (Auto) 51.0 Lymph % (Auto) 31.2 [place] % (Auto) 15.1 H Eos % (Auto) 1.6 Baso % (Auto) 1.1 Neut # (Auto) 1.3 L Lymph # (Auto) 0.8 L [place] # (Auto) 0.4 Eos # (Auto) 0.0 Baso # (Auto) 0.0 WBC Differential . Diff Scan Auto diff confirmed Differential Comment . Platelet Estimate Normal Platelet Morphology Normal Smear Path Review ESR Retic Count 2.8 Absolute Retic 70.2 APTT Fibrinogen Sodium Potassium Chloride Carbon Dioxide Anion Gap BUN Creatinine Estimated GFR POC Glucose Random Glucose Uric Acid 8.7 H Calcium Phosphorus Magnesium Lactate Dehydrogenase 204 C-Reactive Protein Less than 0.29 Albumin 12/27/17 05:36 WBC RBC Hgb Hct MCV MCH MCHC RDW Plt Count MPV Prelim Diff (Auto) Neut % (Auto) Lymph % (Auto) [place] % (Auto) Eos % (Auto) Baso % (Auto) Neut # (Auto) Lymph # (Auto) [place] # (Auto) Eos # (Auto) Baso # (Auto) WBC Differential Diff Scan Differential Comment Platelet Estimate Platelet Morphology Smear Path Review ESR Retic Count Absolute Retic APTT Fibrinogen Sodium 135 L Potassium 4.4 Chloride 96 L Carbon Dioxide 27.2 Anion Gap 12 BUN 52 H Creatinine 2.23 H Estimated GFR 22 L POC Glucose Random Glucose 231 H Uric Acid Calcium 9.6 Phosphorus 3.5 Magnesium 1.7 Lactate Dehydrogenase C-Reactive Protein Albumin 3.4 Imaging Studies: Impressions Liver Ultrasound 12/27/17 00:00 CONCLUSION: 1. Hepatosplenomegaly. 2. Cholelithiasis. 3. Echogenic kidney with thinned renal cortex consistent with medical renal disease. Medications: Active Medications Generic Name Dose Route Start Last Admin Trade Name Freq PRN Reason Stop Dose Admin Aspirin 81 mg 12/22/17 09:00 12/27/17 09:03 Ecotrin PO 81 mg DAILY ELLA Administration Carvedilol 12.5 mg 12/21/17 21:00 12/27/17 09:03 Coreg PO 12.5 mg BID ELLA Administration Cyanocobalamin 1,000 mcg 12/27/17 09:00 12/27/17 09:03 Vitamin B12 PO 1,000 mcg DAILY ELLA Administration Famotidine 10 mg 12/22/17 21:00 12/27/17 09:04 Pepcid PO 10 mg BID ELLA Administration Ferrous Sulfate 325 mg 12/21/17 12:00 12/27/17 13:49 Ferosul PO 325 mg BID@1200,1700 ELLA Administration Heparin Sodium (Porcine) 5,000 units 12/21/17 11:00 12/27/17 13:50 Heparin Inj SQ 5,000 units Q12H ELLA Administration Hydralazine HCl 10 mg 12/21/17 12:38 12/21/17 23:30 Apresoline Inj IV.PUSH 10 mg Q30M PRN Administration SBP > 160 Sodium Chloride 1,000 mls @ 42 mls/hr 12/26/17 10:15 12/27/17 10:30 1/2 Normal Saline Inj IV.CONT Not Given .[id number] [facility] Labetalol HCl 20 mg 12/21/17 13:00 12/21/17 13:05 Trandate Inj IV.PUSH 20 mg Q2H PRN Administration SYS BP GREATER THAN 170 MMHG Levothyroxine Sodium 100 mcg 12/22/17 09:00 12/27/17 09:03 Synthroid PO 100 mcg DAILY [facility] Administration Modafinil 100 mg 12/25/17 12:00 12/27/17 09:04 Provigil PO 100 mg DAILY ELLA Administration Ondansetron HCl 4 mg 12/24/17 13:05 12/24/17 13:30 Zofran Inj IV.PUSH 4 mg Q6H PRN Administration NAUSEA OR VOMITING Sertraline HCl 50 mg 12/22/17 09:00 12/27/17 09:05 Zoloft PO 50 mg DAILY [facility] Administration Sodium Chloride 2 ml 12/21/17 21:00 12/27/17 09:06 Ns Flush IV.FLUSH Not Given BID [facility] Temazepam 15 mg 12/22/17 11:22 12/22/17 20:32 Restoril PO 15 mg HS PRN Administration INSOMNIA Tramadol HCl 50 mg 12/21/17 12:19 12/26/17 22:36 Ultram PO 50 mg TID PRN Administration PAIN SCALE 1 TO 10 Objective Remarks: GENERAL: Obese older female resting in bed in no obvious distress SKIN: Warm and dry. HEAD: Normocephalic. EYES: No scleral icterus. No injection or drainage. NECK: Supple, trachea midline. No JVD or lymphadenopathy. CARDIOVASCULAR: Regular rate and rhythm without murmurs. RESPIRATORY: Breath sounds equal bilaterally. No accessory muscle use. GASTROINTESTINAL: Abdomen soft, non-tender, nondistended. EXTREMITIES: Generalized edema to bilateral lower extremities MUSCULOSKELETAL: Adequate muscle tone. NEUROLOGICAL: Awake and alert. Answering questions appropriately. Moving all extremities. Assessment/Plan - Plan 67-year-old female with history of chronic renal disease, hypertension, diabetes , coronary artery disease admitted with altered mental status found to have pancytopenia. 1. The low B12 has been replaced IM. The patient is on oral daily vitamin B12 tablets. 2. Peripheral flow cytometry pending. Noted ultrasound of abdomen to show hepatosplenomegaly. 3. We will plan to follow patient outpatient and if she continues to have anemia and leukopenia after her B12 has been replete would initiate bone marrow at that time. - Attending Statement The exam, history, and the medical decision-making described in the above note were completed with the assistance of the mid-level provider. I reviewed and agree with the findings presented. I attest that I had a [id number] encounter with the patient on the same day, and personally performed and documented my assessment and findings in the medical record. 67 yoF pancytopenia. Evidence of hepatosplenomegaly on ultrasound. Elevated ESR. Vitamin B12 deficiency on replacement. contributing factors to pancytopenia include B12 deficiency hepatomegaly, hypersplenism, CKD. If no improvement would consider outpatient bone marrow.
[2017-12-27] MEDS: Sod Chloride 0.9% Inj 1,000 ML IV.CONT SCH ×2 (14:44→17:44)
--- NOTE | 2017-12-27 15:00 | US ---
EXAM DATE: 12/27/2017 12:00 AM EDT AGE/SEX: 67 years / Female INDICATIONS: Hydronephrosis. CLINICAL DATA: This is the patient's initial encounter. Patient reports that signs and symptoms have been present for 1 day and indicates a pain score of 0/10. MEDICAL/SURGICAL HISTORY: . Arthritis. Diabetes. Hypercholesterolemia. Anxiety. Arthritis. Back pain. Depression. Diabetes. Deep vein thrombosis. Hypercholesterolemia. Hypertension. Kidney disease . Myocardial infarction. . Hysterectomy. [place] [facility] [place]. . MEASUREMENTS: Right Kidney:__12.2 x 5.2 x 4.3 cm Left Kidney:__12.2 x 4.7 x 4.6 cm FINDINGS: Right Kidney: Increased echotexture. No mass or hydronephrosis. Left Kidney: Increased echotexture. No mass or hydronephrosis. There is a cyst along the mid pole tj suring 2.7 x 3.4 cm. Bladder: Within normal limits given the degree of distension. Other: None. CONCLUSION: 1. The kidneys are echogenic bilaterally consistent with medical renal disease. 2. No evidence of hydronephrosis. 3. Benign-appearing left renal cyst measuring 3.4 cm. Electronically signed by: Gee Hernandez MD 12/27/2017 2:58 PM EDT
--- NOTE | 2017-12-27 16:53 | CT ---
EXAM DATE: 12/27/2017 3:18 PM EDT AGE/SEX: 67 years / Female INDICATIONS: Altered mental status. CLINICAL DATA: This is the patient's initial encounter. Patient reports that signs and symptoms have been present for 1 day and indicates a pain score of 0/10. MEDICAL/SURGICAL HISTORY: Diabetes. Hypertension. Myocardial infarction. Hysterectomy. RADIATION DOSE: 56.35 CTDI (mGy) COMPARISON: [facility] – [place], 12/21/2017. . TECHNIQUE: CT of the head without contrast. Using automated exposure control and adjustment of the mA and/or kV according to patient size, radiation dose was kept as low as reasonably achievable to ob tain optimal diagnostic quality images. DICOM format image data is available electronically for revi ew and comparison. FINDINGS: Cerebrum: The ventricles are normal for age. There are stable bilateral cortical atrophy. No eviden ce of midline shift, mass lesion, hemorrhage or acute infarction. No extraaxial fluid collections ar e seen. There is some stable chronic white matter changes bilaterally. Posterior Fossa: The cerebellum and brainstem are intact. The 4th ventricle is midline. The cerebe llopontine angle is unremarkable. Extracranial: The visualized portion of the orbits is intact. Skull: The calvaria is intact. No evidence of skull fracture. CONCLUSION: 1. No focal or acute intracranial hemorrhage. 2. Unremarkable CT brain for patient's age. . Electronically signed by: Gee Hernandez MD 12/27/2017 4:52 PM EDT
[2017-12-27] MEDS ORDERED: glipiZIDE 5 MG Tablet PO SCH (17:00)
[2017-12-27] MEDS ORDERED: Dextrose 50% in Water 50 ML Vial IV.PUSH PRN (17:32)
--- NOTE | 2017-12-27 17:33 | P.CONNP ---
History of Present Illness Reason for Consult: Acute on chronic renal insufficiency. Primary Care Provider: UNKNOWN Chief Complaint: Encephalopathy History of Present Illness: This patient is a 67-year-old female who apparently does have a history of chronic kidney disease with serum creatinine level of 1.44 back in 2013 and a renal ultrasound also indicating the presence of echogenic kidneys consistent with chronic medical renal disease. She was evaluated by nephrology then and was felt to have CKD related to diabetes and hypertension. Patient was admitted to this institution on December 21, 2017 with change in mental status and mention of hypoglycemia. Echocardiogram has revealed an ejection fraction of 50-55% on December 22, 2017. The patient does have a history of bipolar disorder. On reviewing additional records serum creatinine level is range between 1.25 and 1.89 back in May 2017. Repeat renal ultrasound dated December 27, 2017 also indicates medical renal disease. Creatinine on admission 1.45 subsequently deteriorating progressively to a level of 2.23 today. Furosemide was discontinued yesterday. Patient continues to have altered mental status and I suspect poor fluid intake. Review of Systems unobtainable due to mental status PMFSH - History History Provided By: Patient, Medical Record - Medical / Surgical Hx Neg / Unobtainable Medical Problems Denied: Unable to Obtain - Medical History Medical History: Medical History (Last Reviewed 12/24/17 @ 15:10 by Angie Wylie) Anxiety Back pain Depression Hypercholesteremia Past heart attack Arthritis DVT (deep venous thrombosis) Diabetes H/O: hysterectomy Hypertension Kidney disease - Tobacco History Second Hand Smoke Exposure: No Tobacco Use In Past 30 Days: No Smoking Status: Former smoker - Alcohol History How Often Do You Have a Drink Containing Alcohol: Never - Substance Use History Substance History: No History of Abuse - Immunization History Tetanus Immunization: Unable to Assess Hx Influenza Vaccine This Season: Unable to Assess Medications and Allergies Active Medications: Active Medications Acetaminophen (Tylenol) 650 mg PO Q6H PRN PRN Reason: PAIN 1-10 AND/OR FEVER >101F Al Hydroxide/Mg Hydroxide (Milk Of Magnbeatriz Liq) 30 ml PO Q12H PRN PRN Reason: Mild Constipation Aspirin (Ecotrin) 81 mg PO DAILY [facility] Last Admin: 12/27/17 09:03 Dose: 81 mg Bisacodyl (Dulcolax Supp) 10 mg RECTAL DAILY PRN PRN Reason: SEVERE CONSITIPATION Carvedilol (Coreg) 12.5 mg PO BID [facility] Last Admin: 12/27/17 09:03 Dose: 12.5 mg Cyanocobalamin (Vitamin B12) 1,000 mcg PO DAILY [facility] Last Admin: 12/27/17 09:03 Dose: 1,000 mcg Dextrose (D50w Vial) 50 ml IV.PUSH UNSCH PRN PRN Reason: PER HYPOGLYCEMIA PROTOCOL Famotidine (Pepcid) 10 mg PO BID [facility] Last Admin: 12/27/17 09:04 Dose: 10 mg Ferrous Sulfate (Ferosul) 325 mg PO BID@1200,1700 [facility] Last Admin: 12/27/17 13:49 Dose: 325 mg Glipizide (Glucotrol) 5 mg PO BID@0800,1700 [facility] Glucagon (Glucagon Inj) 1 mg OTHER PRN PRN PRN Reason: for Hypoglycemia Protocol Heparin Sodium (Porcine) (Heparin Inj) 5,000 units SQ Q12H [facility] Last Admin: 12/27/17 13:50 Dose: 5,000 units Hydralazine HCl (Apresoline Inj) 10 mg IV.PUSH Q30M PRN PRN Reason: SBP > 160 Last Admin: 12/21/17 23:30 Dose: 10 mg Sodium Chloride (Ns Inj) 1,000 mls @ 125 mls/hr IV.CONT .Q8H [facility] Last Admin: 12/27/17 14:44 Dose: 125 mls/hr Insulin Aspart (Novolog Mix 70/30 Inj) 36 units SQ DAILY [facility] Labetalol HCl (Trandate Inj) 20 mg IV.PUSH Q2H PRN PRN Reason: SYS BP GREATER THAN 170 [facility] Last Admin: 12/21/17 13:05 Dose: 20 mg Lactulose (Lactulose Liq) 30 ml PO DAILY PRN PRN Reason: SEVERE CONSITIPATION Levothyroxine Sodium (Synthroid) 100 mcg PO DAILY [facility] Last Admin: 12/27/17 09:03 Dose: 100 mcg Miscellaneous (Pill Splitter) 1 each OTHER UNSCH [facility] Modafinil (Provigil) 100 mg PO DAILY [facility] Last Admin: 12/27/17 09:04 Dose: 100 mg Ondansetron HCl (Zofran Inj) 4 mg IV.PUSH Q6H PRN PRN Reason: NAUSEA OR VOMITING Last Admin: 12/24/17 13:30 Dose: 4 mg Ondansetron HCl (Zofran Odt) 4 mg PO Q6H PRN PRN Reason: NAUSEA OR VOMITING Promethazine HCl (Phenergan) 25 mg PO Q6H PRN PRN Reason: NAUSEA OR VOMITING Promethazine HCl (Phenergan Supp) 25 mg RECTAL Q6H PRN PRN Reason: NAUSEA OR VOMITING Sennosides (Senokot) 17.2 mg PO Q12H PRN PRN Reason: Moderate Constipation Sertraline HCl (Zoloft) 50 mg PO DAILY [facility] Last Admin: 12/27/17 09:05 Dose: 50 mg Sodium Chloride (Ns Flush) 2 ml IV.FLUSH BID [facility] Last Admin: 12/27/17 09:06 Dose: Not Given Sodium Chloride (Ns Flush) 2 ml IV.FLUSH PRN PRN PRN Reason: FLUSH AFTER USING IV ACCESS Temazepam (Restoril) 15 mg PO HS PRN PRN Reason: INSOMNIA Last Admin: 12/22/17 20:32 Dose: 15 mg Tramadol HCl (Ultram) 50 mg PO TID PRN PRN Reason: PAIN SCALE 1 TO 10 Last Admin: 12/26/17 22:36 Dose: 50 mg Allergies Allergy/AdvReac Type Severity Reaction Status Date / Time No Known Allergies Allergy Uncoded 11/30/12 00:14 Home Medications Medication Instructions Recorded Confirmed Type acetaminophen 500 mg PO Q4H PRN 12/21/17 12/21/17 History aspirin [Aspir-81] 81 mg PO DAILY 12/21/17 12/21/17 History bisacodyl 5 mg PO DAILY PRN 12/21/17 12/21/17 History carvedilol 12.5 mg PO BID 12/21/17 12/21/17 History furosemide 40 mg PO DAILY 12/21/17 12/21/17 History insulin asp prt-insulin aspart 36 unit SUBCUT DAILY 12/21/17 12/21/17 History [Novolog Mix 70-30 U-100 Insuln] levothyroxine 100 mcg PO DAILY 12/21/17 12/21/17 History ranitidine HCl 300 mg PO DAILY 12/21/17 12/21/17 History risperidone 1 mg PO BID 12/21/17 12/21/17 History sertraline 50 mg PO DAILY 12/21/17 12/21/17 History tramadol 50 mg PO TID PRN 12/21/17 12/21/17 History Exam Vital signs: Vital Signs 12/26/17 20:00 12/27/17 00:00 12/27/17 04:00 Temperature 98.1 F 98 F 98.6 F Pulse Rate 64 65 64 Respiratory Rate 20 20 20 Blood Pressure 129/69 147/65 H 156/69 H Pulse Oximetry 95 92 L 97 12/27/17 08:00 12/27/17 12:00 12/27/17 16:00 Temperature 97.3 F L Pulse Rate 57 L 55 L 60 Respiratory Rate 20 Blood Pressure 138/61 Pulse Oximetry 98 Intake & Output 12/26/17 12/27/17 12/27/17 18:59 06:59 18:59 Intake Total 720 / 720 210 / 210 1500 / 1500 Output Total 500 / 500 Balance 720 / 720 -290 / -290 1500 / 1500 Intake: IV 1500 / 1500 1/2 Normal Saline Inj 1,000 ML 1000 / 1000 @ 42 mls/hr IV.CONT .[id number] [facility] Rx#:[id number] NS Inj 500 ML @ Wide Open IV. 500 / 500 SIG BOLUS [facility] Rx#:[id number] Oral 720 / 720 210 / 210 Output: Urine 500 / 500 Other: # Voids 3 2 Date of Last Bowel Movement 12/25/17 12/25/17 # Bowel Movements 0 Narrative: GENERAL: Obese female lying in bed not in respiratory distress. Limited cooperation with physical examination due to mental status. SKIN: Warm and dry. Skin turgor diminished. HEAD: Atraumatic. Normocephalic. EYES: Pupils equal and round. No scleral icterus. No injection or drainage. ENT: No nasal bleeding or discharge. Patient would not open mouth for examination. NECK: Trachea midline. No JVD. CARDIOVASCULAR: Regular rate and rhythm. RESPIRATORY: No accessory muscle use. Clear to auscultation. Breath sounds equal bilaterally. GASTROINTESTINAL: Abdomen soft, non-tender, obese, nondistended. Hepatic and splenic margins not palpable. MUSCULOSKELETAL: Extremities without clubbing, cyanosis, or edema. No obvious deformities. NEUROLOGICAL: Awake and alert. Motor grossly within normal limits. Five out of 5 muscle strength in the arms and legs. Results - Lab Results 12/27/17 05:36 12/27/17 05:36 Most recent lab results ABG pH 7.36 (7.380-7.420) L 12/24/17 16:59 ABG pCO2 51 mmHg (38-42) H* 12/24/17 16:59 ABG pO2 64 mmHg (61-120) 12/24/17 16:59 ABG HCO3 28 mmol/L (22-26) H 12/24/17 16:59 Calcium 9.6 mg/dL (8.5-10.1) 12/27/17 05:36 Phosphorus 3.5 mg/dL (2.5-4.9) 12/27/17 05:36 Magnesium 1.7 mg/dL (1.5-2.5) 12/27/17 05:36 Assessment and Plan - Assessment (1) Acute on chronic renal insufficiency Code(s): N28.9 - Disorder of kidney and ureter, unspecified; N18.9 - Chronic kidney disease, unspecified Status: Acute Plan: Which clinically appears to be related to intravascular volume depletion secondary to poor oral intake with continued usage of furosemide. Furosemide now discontinued. Agree with IV hydration with monitoring of volume status and renal indices. Medications should be adjusted for the patient's estimated GFR if clinically indicated. Avoid agents with significant potential for nephrotoxicity possible including NSAIDs for analgesia, iodine contrast agents. Gadolinium is contraindicated if the GFR is below 30. (2) Chronic kidney disease (CKD), stage III (moderate) Code(s): N18.3 - Chronic kidney disease, stage 3 (moderate) Status: Acute Plan: Most likely secondary to nephrosclerosis of hypertension with possible coexisting diabetic nephropathy. (3) Dehydration, moderate Code(s): E86.0 - Dehydration Status: Acute Plan: IV hydration as ordered.
[2017-12-27] MEDS: Insulin NovoLOG Aspart Correctional Sugar Inj SQ SCH (22:08)
[2017-12-27] MEDS: Temazepam 15 MG Capsule PO PRN (22:08)
[2017-12-28] MEDS: Acetaminophen 325 MG Tablet PO PRN (03:15)
[2017-12-28] MEDS: Sod Chloride 0.9% Inj 1,000 ML IV.CONT SCH ×4 (06:18→20:25)
[2017-12-28 06:41] LABS: Baso % (Auto) 1.5 % (0.0-2.0); Eos % (Auto) 1.8 % (0.0-4.0); Hematocrit 25.1 % (35.0-46.0); Lymph # (Auto) 0.9 th/mm3 (1.0-4.8); Mean Corpuscular HGB Conc 35.9 % (32.0-36.0); Mean Corpuscular Hemoglobin 36.9 pg (27.0-34.0); Mean Corpuscular Volume 102.8 fL (80.0-100.0); Mean Platelet Volume 7.6 fL (7.0-11.0); Mono # (Auto) 0.4 th/mm3 (0.0-0.9); Mono % (Auto) 16.2 % (0.0-8.0); Neut # (Auto) 1.2 th/mm3 (1.8-7.7); Neut % (Auto) 46.5 % (16.0-70.0); Platelet Count 210 th/mm3 (150-450); Red Blood Count 2.44 mil/mm3 (4.00-5.30); Red Cell Distribution Width 14.1 % (11.6-17.2); White Blood Count 2.6 th/mm3 (4.0-11.0)
[2017-12-28 06:59] LABS: Albumin 3.1 g/dL (3.4-5.0); Calcium 8.8 mg/dL (8.5-10.1); Carbon Dioxide 26.4 meq/L (21.0-32.0); Phosphorus 3.8 mg/dL (2.5-4.9); Potassium 4.5 meq/L (3.5-5.1)
[2017-12-28] MEDS: Levothyroxine 100 MCG Tablet PO SCH (09:27)
[2017-12-28] MEDS: Famotidine 20 MG Tablet PO SCH ×2 (09:27→21:25)
[2017-12-28] MEDS: Carvedilol 12.5 MG Tablet PO SCH ×2 (09:27→21:25)
[2017-12-28] MEDS: Insulin NovoLOG Aspart Correctional Sugar Inj SQ SCH ×4 (09:27→21:25)
[2017-12-28] MEDS: Modafinil 200 MG Tablet PO SCH (09:27)
[2017-12-28] MEDS: Sertraline 50 MG Tablet PO SCH (09:27)
--- NOTE | 2017-12-28 10:50 | P.PNIM ---
Subjective Interval history: Patient more awake and alert today. Denies any chest pain or shortness of breath. Physical Exam Vital signs: Vital Signs 12/27/17 12:00 12/27/17 16:00 12/27/17 20:00 Temperature 97.9 F 97.8 F 98.5 F Pulse Rate 59 L 57 L 65 Respiratory Rate 20 20 20 Blood Pressure 145/63 H 145/63 H 153/67 H Pulse Oximetry 94 L 94 L 95 12/28/17 00:00 12/28/17 04:00 12/28/17 08:00 Temperature 97.7 F 98.1 F 97.8 F Pulse Rate 62 54 L 56 L Respiratory Rate 20 20 18 Blood Pressure 142/62 H 132/66 173/74 H Pulse Oximetry 93 L 93 L 94 L Intake & Output 12/27/17 12/28/17 12/28/17 18:59 06:59 18:59 Intake Total 1979 580 / 580 100 / 100 Balance 1979 580 / 580 100 / 100 Intake: IV 1500 / 1500 100 / 100 NS Inj 1,000 ML @ 125 mls/hr IV 100 / 100 .CONT .Q8H [facility] Rx#:[id number] 1/2 Normal Saline Inj 1,000 ML 1000 / 1000 @ 42 mls/hr IV.CONT .[id number] [facility] Rx#:[id number] NS Inj 500 ML @ Wide Open IV. 500 / 500 SIG BOLUS [facility] Rx#:[id number] Oral 480 / 480 580 / 580 Other: # Voids 3 # Incontinent Voids 5 Narrative: GENERAL: Patient awake, eating breakfast. Appears comfortable. SKIN: Warm and dry. HEAD: Normocephalic. EYES: No scleral icterus. No injection or drainage. NECK: Supple, trachea midline. No JVD. CARDIOVASCULAR: Regular rate and rhythm without murmurs, gallops, or rubs. RESPIRATORY: Breath sounds equal bilaterally. No accessory muscle use. GASTROINTESTINAL: Abdomen soft, non-tender, nondistended. MUSCULOSKELETAL: No cyanosis, or edema. BACK: Nontender without obvious deformity. No CVA tenderness. - Urinary Catheter Management Indwelling Urethral Catheter Cath placed during this visit: no Results - Labs CBC & Chem 7: 12/28/17 06:25 12/28/17 06:25 Laboratory Results - last 24 hr 12/28/17 12/28/17 12/28/17 06:25 06:25 06:25 WBC 2.6 L RBC 2.44 L Hgb 9.0 L Hct 25.1 L MCV 102.8 H MCH 36.9 H MCHC 35.9 RDW 14.1 Plt Count 210 MPV 7.6 Neut % (Auto) 46.5 Lymph % (Auto) 34.0 [place] % (Auto) 16.2 H Eos % (Auto) 1.8 Baso % (Auto) 1.5 Neut # (Auto) 1.2 L Lymph # (Auto) 0.9 L [place] # (Auto) 0.4 Eos # (Auto) 0.0 Baso # (Auto) 0.0 WBC Differential . Differential Comment Auto diff final Sodium 138 Potassium 4.5 Chloride 102 Carbon Dioxide 26.4 Anion Gap 10 BUN 50 H Creatinine 2.10 H Estimated GFR 23 L Random Glucose 120 H D Calcium 8.8 D Phosphorus 3.8 Albumin 3.1 L PTH Intact 103.6 H - Imaging Impressions Abdomen/Bladder Ultrasound 12/27/17 00:00 CONCLUSION: 1. The kidneys are echogenic bilaterally consistent with medical renal disease. 2. No evidence of hydronephrosis. 3. Benign-appearing left renal cyst measuring 3.[address] 12/27/17 00:00 CONCLUSION: 1. No focal or acute intracranial hemorrhage. 2. Unremarkable CT brain for patient's age. . - Procedures None Assessment and Plan - Assessment (1) Encephalopathy, metabolic Code(s): G93.41 - Metabolic encephalopathy Status: Acute (2) Poorly controlled diabetes mellitus Code(s): E11.65 - Type 2 diabetes mellitus with hyperglycemia Status: Acute (3) Hypoglycemia associated with diabetes Code(s): E11.649 - Type 2 diabetes mellitus with hypoglycemia without coma Status: Acute - Plan TSH pending. 67-year-old female with //Metabolic encephalopathy Now resolved It was due to severe episode of hypoglycemia. = Patient on chronic narcotics for diffuse pain. This pain is likely exacerbated by untreated sleep apnea, patient noncompliant with CPAP. She will need a new CPAP as an outpatient. =12/24 Patient very somnolent today. Malignant sleep apnea. Pulmonology consult. Have ordered CPAP. Instructed patient to sleep on her side while in the hospital. = 12/25. He continues with severe sleep apnea. Patient with variable medical compliance at home. Suspect she does not even take Risperdal at home, just as needed. Will discontinue Risperdal here. Will start on modafinil for alertness. = 12/26. Reviewing old records, patient appears to have a B12 deficiency with B12 early this year in the 180s. Will recheck B12, methylmalonic acid. Will start IM supplementation. Continue modafinil. = 12/27. Will repeat CT head to rule out subdural hematoma. Continue B12 supplementation. Appreciate hematology assistance. = 12/31. Repeat CT with no acute findings. Mental status improving with IV fluids, B12 supplementation. Appreciate hematology assistance. //B12 deficiency //Leukopenia //Anemia. Chronic. Back ascitic. Likely secondary to B12 deficiency. With iron supplementation. Hematology following. Continue B12 supplementation.. //Atypical left-sided chest pain -Tender to palpation. Likely costochondritis. We will check EKG, chest x-ray. D-dimer, bilateral lower extremity ultrasounds. Patient has been on heparin but does have history of DVT in the past. = D-dimer negative, chest x-ray with no acute findings. EKG with no acute findings. This chest pain resolved. //Affected obstructive sleep apnea //Chronic narcotic use Patient very concerned with following up to receive narcotic prescriptions from pain management tomorrow. I believe she has chronic untreated sleep apnea for which she is noncompliant with CPAP. Recommend avoiding all narcotics. You need to follow with pulmonology as outpatient to get a CPAP. = Very severe sleep apnea. Will start on CPAP. Pending pulmonology consultation. = Continues with very severe sleep apnea, somnolence. Appreciate pulmonary assistance. //Hypoglycemia associated with type 2 diabetes //Type 2 diabetes Will hold basal insulin Continue treatment per hypoglycemia protocol = Have ordered cosmetology educator. Patient will no longer need insulin. = Blood sugars acceptable on low-dose glipizide. Continue to monitor = 12/27. Blood sugars elevated in the 200s. Will increase glipizide. //Acute kidney injury on kidney disease stage III. Creatinine around baseline. Avoid nephrotoxins. = 12/26. Patient will dehydrated. Will start on maintenance fluids. = 12/27. Maintenance fluids discontinued yesterday due to IV coming out. Will replace IV as creatinine up to 2.2 today. Maintenance fluids. = 12/28. Nephrology following. Creatinine improving. Continue IV fluids. Continue to monitor. //CT of the head demonstrated hyperdensity in the left frontal lobe most consistent with artifact rather than intracranial hemorrhage. Appreciate input from neurosurgery, no indication for further study //Other chronic medical conditions Continue outpatient medications //DVT prophylaxis: Bilateral SCDs Discharge Planning: Hopefully discharge home with home health versus rehab. Patient and family resistant to rehab. In the next few days
[2017-12-28] MEDS: Ferrous Sulfate 325 MG Tablet PO SCH ×2 (12:26→18:02)
[2017-12-28] MEDS: Heparin - SQ 10,000 UNITS/ML Vial SQ SCH (12:26)
--- NOTE | 2017-12-28 17:24 | P.PNNP ---
Subjective Interval history: This patient is a 67-year-old female who apparently does have a history of chronic kidney disease with serum creatinine level of 1.44 back in 2013 and a renal ultrasound also indicating the presence of echogenic kidneys consistent with chronic medical renal disease. She was evaluated by nephrology then and was felt to have CKD related to diabetes and hypertension. Patient was admitted to this institution on December 21, 2017 with change in mental status and mention of hypoglycemia. Echocardiogram has revealed an ejection fraction of 50-55% on December 22, 2017. The patient does have a history of bipolar disorder. On reviewing additional records serum creatinine level is range between 1.25 and 1.89 back in May 2017. Repeat renal ultrasound dated December 27, 2017 also indicates medical renal disease. Creatinine on admission 1.45 subsequently deteriorating progressively to a level of 2.23 on day of consultation. Furosemide was discontinued y. Patient continues to have altered mental status and I suspect poor fluid intake. December 28, 2017: Patient with no verbal complaints. Appears slightly more alert today. Physical Exam Vital signs: Vital Signs 12/27/17 20:00 12/28/17 00:00 12/28/17 04:00 Temperature 98.5 F 97.7 F 98.1 F Pulse Rate 65 62 54 L Respiratory Rate 20 20 20 Blood Pressure 153/67 H 142/62 H 132/66 Pulse Oximetry 95 93 L 93 L 12/28/17 08:00 12/28/17 12:00 Temperature 97.8 F 97.9 F Pulse Rate 56 L 55 L Respiratory Rate 18 18 Blood Pressure 173/74 H 128/60 Pulse Oximetry 94 L 94 L Intake & Output 12/27/17 12/28/17 12/28/17 18:59 06:59 18:59 Intake Total 1979 580 / 580 100 / 100 Balance 1979 580 / 580 100 / 100 Intake: IV 1500 / 1500 100 / 100 NS Inj 1,000 ML @ 125 mls/hr IV 100 / 100 .CONT .Q8H [facility] Rx#:[id number] 1/2 Normal Saline Inj 1,000 ML 1000 / 1000 @ 42 mls/hr IV.CONT .[id number] [facility] Rx#:[id number] NS Inj 500 ML @ Wide Open IV. 500 / 500 SIG BOLUS [facility] Rx#:[id number] Oral 480 / 480 580 / 580 Other: # Voids 3 # Incontinent Voids 5 Narrative: GENERAL: Patient awake, eating breakfast. Obese. Appears comfortable. SKIN: Warm and dry. HEAD: Normocephalic. EYES: No scleral icterus. No injection or drainage. NECK: Supple, trachea midline. No JVD. CARDIOVASCULAR: Regular rate and rhythm without murmurs, gallops, or rubs. RESPIRATORY: Breath sounds equal bilaterally. No accessory muscle use. GASTROINTESTINAL: Abdomen soft, non-tender, nondistended. MUSCULOSKELETAL: No cyanosis, or edema. . - Urinary Catheter Management Indwelling Urethral Catheter Cath placed during this visit: no Assessment and Plan - Assessment (1) Acute on chronic renal insufficiency Code(s): N28.9 - Disorder of kidney and ureter, unspecified; N18.9 - Chronic kidney disease, unspecified Status: Acute Plan: Which clinically appears to be related to intravascular volume depletion secondary to poor oral intake with continued usage of furosemide. Furosemide now discontinued. Renal indices improving with IV hydration. Continue same. PTH level is elevated. Will check vitamin D level suspect secondary hyperparathyroidism. Medications should be adjusted for the patient's estimated GFR if clinically indicated. Avoid agents with significant potential for nephrotoxicity possible including NSAIDs for analgesia, iodine contrast agents. Gadolinium is contraindicated if the GFR is below 30. (2) Chronic kidney disease (CKD), stage III (moderate) Code(s): N18.3 - Chronic kidney disease, stage 3 (moderate) Status: Acute Plan: Most likely secondary to nephrosclerosis of hypertension with possible coexisting diabetic nephropathy. (3) Dehydration, moderate Code(s): E86.0 - Dehydration Status: Acute Plan: IV hydration as ordered.
[2017-12-28] MEDS: Temazepam 15 MG Capsule PO PRN (21:25)
[2017-12-29] MEDS: Heparin - SQ 10,000 UNITS/ML Vial SQ SCH ×3 (00:09→22:45)
[2017-12-29] MEDS: Acetaminophen 325 MG Tablet PO PRN (00:09)
[2017-12-29] MEDS: Sod Chloride 0.9% Inj 1,000 ML IV.CONT SCH ×4 (03:48→22:19)
[2017-12-29 06:05] LABS: Baso % (Auto) 1.3 % (0.0-2.0); Eos % (Auto) 1.7 % (0.0-4.0); Hematocrit 28.7 % (35.0-46.0); Hemoglobin 9.9 gm/dL (11.6-15.3); Lymph # (Auto) 0.8 th/mm3 (1.0-4.8); Lymph % (Auto) 32.7 % (9.0-44.0); Mean Corpuscular HGB Conc 34.5 % (32.0-36.0); Mean Corpuscular Hemoglobin 34.3 pg (27.0-34.0); Mean Corpuscular Volume 99.4 fL (80.0-100.0); Mean Platelet Volume 8.2 fL (7.0-11.0); Mono # (Auto) 0.4 th/mm3 (0.0-0.9); Mono % (Auto) 16.9 % (0.0-8.0); Neut # (Auto) 1.1 th/mm3 (1.8-7.7); Neut % (Auto) 47.4 % (16.0-70.0); Platelet Count 213 th/mm3 (150-450); Red Blood Count 2.88 mil/mm3 (4.00-5.30); Red Cell Distribution Width 14.3 % (11.6-17.2); White Blood Count 2.4 th/mm3 (4.0-11.0)
[2017-12-29 06:26] LABS: Albumin 3.3 g/dL (3.4-5.0); Carbon Dioxide 25.5 meq/L (21.0-32.0); Magnesium 1.7 mg/dL (1.5-2.5); Phosphorus 3.7 mg/dL (2.5-4.9); Potassium 4.9 meq/L (3.5-5.1)
[2017-12-29] MEDS: Famotidine 20 MG Tablet PO SCH ×2 (09:11→21:24)
[2017-12-29] MEDS: Modafinil 200 MG Tablet PO SCH (09:11)
[2017-12-29] MEDS: Insulin NovoLOG Aspart Correctional Sugar Inj SQ SCH ×4 (09:12→21:25)
[2017-12-29] MEDS: Sertraline 50 MG Tablet PO SCH (09:12)
[2017-12-29] MEDS: Levothyroxine 100 MCG Tablet PO SCH (09:12)
[2017-12-29] MEDS: Carvedilol 12.5 MG Tablet PO SCH ×2 (09:12→21:24)
--- NOTE | 2017-12-29 10:16 | P.PNNP ---
Subjective Interval history: This patient is a 67-year-old female who apparently does have a history of chronic kidney disease with serum creatinine level of 1.44 back in 2013 and a renal ultrasound also indicating the presence of echogenic kidneys consistent with chronic medical renal disease. She was evaluated by nephrology then and was felt to have CKD related to diabetes and hypertension. Patient was admitted to this institution on December 21, 2017 with change in mental status and mention of hypoglycemia. Echocardiogram has revealed an ejection fraction of 50-55% on December 22, 2017. The patient does have a history of bipolar disorder. On reviewing additional records serum creatinine level is range between 1.25 and 1.89 back in May 2017. Repeat renal ultrasound dated December 27, 2017 also indicates medical renal disease. Creatinine on admission 1.45 subsequently deteriorating progressively to a level of 2.23 on day of consultation. Furosemide was discontinued y. Patient continues to have altered mental status and I suspect poor fluid intake. December 28, 2017: Patient with no verbal complaints. Appears slightly more alert today. 12/29/17: Pt sitting on edge of bed in NAD. No specific complaints today. Physical Exam Vital signs: Vital Signs 12/28/17 12:00 12/28/17 16:00 12/28/17 20:00 Temperature 97.9 F 97.8 F 97.8 F Pulse Rate 55 L 57 L 56 L Respiratory Rate 18 18 18 Blood Pressure 128/60 134/60 138/83 Pulse Oximetry 94 L 96 96 12/29/17 00:00 12/29/17 04:00 12/29/17 08:00 Temperature 97.7 F 97.5 F L 97.7 F Pulse Rate 55 L 57 L 54 L Respiratory Rate 18 18 16 Blood Pressure 137/64 146/66 H 162/73 H Pulse Oximetry 95 96 98 Intake & Output 12/28/17 12/29/17 12/29/17 18:59 06:59 18:59 Intake Total 1400 / 1400 1158.3 / 1158.3 Output Total 150 / 150 Balance 1400 / 1400 1008.3 / 1008.3 Weight 129.7 kg Intake: IV 800 / 800 1158.3 / 1158.3 NS Inj 1,000 ML @ 125 mls/hr IV 800 / 800 1158.3 / 1158.3 .CONT .Q8H [facility] Rx#:[id number] Oral 600 / 600 0 / 0 Output: Urine 150 / 150 Other: # Voids 5 2 Date of Last Bowel Movement 12/29/17 # Bowel Movements 1 2 - Constitutional no acute distress - Routine HEENT Exam Head: Present: normocephalic, atraumatic - Routine Neck Exam Present: supple - Routine Respiratory Exam Present: CTA bilaterally - Routine Cardiovascular Exam Present: RRR, S1, S2 - Routine Abdominal Exam Present: soft - Routine Extremities Exam Absent: edema - Routine Skin Exam Present: intact - Routine Neurological Exam Present: alert, oriented X3 - Routine Psychiatric Exam Present: normal affect, normal thought process - Urinary Catheter Management Indwelling Urethral Catheter Cath placed during this visit: no Assessment and Plan - Assessment (1) Acute on chronic renal insufficiency Code(s): N28.9 - Disorder of kidney and ureter, unspecified; N18.9 - Chronic kidney disease, unspecified Status: Acute Plan: Which clinically appears to be related to intravascular volume depletion secondary to poor oral intake with continued usage of furosemide. Furosemide now discontinued. Renal functions improving and almost back to baseline. Continue on IVF at 100mL/hr. Start Vitamin D3 at 2000IU daily. Appears she has underlying CKD. Would be recommended that she establish with collision mechanic as outpatient. Will see the patient PRN. Medications should be adjusted for the patient's estimated GFR if clinically indicated. Avoid agents with significant potential for nephrotoxicity possible including NSAIDs for analgesia, iodine contrast agents. Gadolinium is contraindicated if the GFR is below 30. (2) Chronic kidney disease (CKD), stage III (moderate) Code(s): N18.3 - Chronic kidney disease, stage 3 (moderate) Status: Acute Plan: Most likely secondary to nephrosclerosis of hypertension with possible coexisting diabetic nephropathy. (3) Dehydration, moderate Code(s): E86.0 - Dehydration Status: Acute Plan: IV hydration as ordered.
--- NOTE | 2017-12-29 11:20 | P.PNIM ---
Subjective Interval history: Patient alert and oriented x3 today. Denies any chest pain shortness of breath. Denies nausea vomiting. Feels like going home tomorrow. Physical Exam Vital signs: Vital Signs 12/28/17 12:00 12/28/17 16:00 12/28/17 20:00 Temperature 97.9 F 97.8 F 97.8 F Pulse Rate 55 L 57 L 56 L Respiratory Rate 18 18 18 Blood Pressure 128/60 134/60 138/83 Pulse Oximetry 94 L 96 96 12/29/17 00:00 12/29/17 04:00 12/29/17 08:00 Temperature 97.7 F 97.5 F L 97.7 F Pulse Rate 55 L 57 L 49 L Respiratory Rate 18 18 18 Blood Pressure 137/64 146/66 H 162/73 H Pulse Oximetry 95 96 98 Intake & Output 12/28/17 12/29/17 12/29/17 18:59 06:59 18:59 Intake Total 1400 / 1400 1158.3 / 1158.3 Output Total 150 / 150 Balance 1400 / 1400 1008.3 / 1008.3 Weight 129.7 kg Intake: IV 800 / 800 1158.3 / 1158.3 NS Inj 1,000 ML @ 125 mls/hr IV 800 / 800 1158.3 / 1158.3 .CONT .Q8H E[facility] Rx#:[id number] Oral 600 / 600 0 / 0 Output: Urine 150 / 150 Other: # Voids 5 2 Date of Last Bowel Movement 12/29/17 # Bowel Movements 1 2 Narrative: GENERAL: Patient lying in bed. Alert and oriented x3. Appears comfortable. SKIN: Warm and dry. HEAD: Normocephalic. EYES: No scleral icterus. No injection or drainage. NECK: Supple, trachea midline. No JVD. CARDIOVASCULAR: Regular rate and rhythm without murmurs, gallops, or rubs. RESPIRATORY: Breath sounds equal bilaterally. No accessory muscle use. GASTROINTESTINAL: Abdomen soft, non-tender, nondistended. MUSCULOSKELETAL: No cyanosis, or edema. BACK: Nontender without obvious deformity. No CVA tenderness. - Urinary Catheter Management Indwelling Urethral Catheter Cath placed during this visit: no Results - Labs CBC & Chem 7: 12/29/17 05:27 12/29/17 05:27 Laboratory Results - last 24 hr 12/28/17 12/29/17 12/29/17 21:24 05:27 05:27 WBC 2.4 L RBC 2.88 L Hgb 9.9 L Hct 28.7 L MCV 99.4 MCH 34.3 H MCHC 34.5 RDW 14.3 Plt Count 213 MPV 8.2 Neut % (Auto) 47.4 Lymph % (Auto) 32.7 [place] % (Auto) 16.9 H Eos % (Auto) 1.7 Baso % (Auto) 1.3 Neut # (Auto) 1.1 L Lymph # (Auto) 0.8 L [place] # (Auto) 0.4 Eos # (Auto) 0.0 Baso # (Auto) 0.0 WBC Differential . Differential Comment Auto diff final Sodium 139 Potassium 4.9 Chloride 104 Carbon Dioxide 25.5 Anion Gap 10 BUN 40 H Creatinine 1.58 H Estimated GFR 32 L POC Glucose 296 H Random Glucose 156 H Calcium 9.0 Phosphorus 3.7 Magnesium 1.7 Albumin 3.3 L Vitamin D 25-Hydroxy 15.4 L 12/29/17 08:29 WBC RBC Hgb Hct MCV MCH MCHC RDW Plt Count MPV Neut % (Auto) Lymph % (Auto) [place] % (Auto) Eos % (Auto) Baso % (Auto) Neut # (Auto) Lymph # (Auto) [place] # (Auto) Eos # (Auto) Baso # (Auto) WBC Differential Differential Comment Sodium Potassium Chloride Carbon Dioxide Anion Gap BUN Creatinine Estimated GFR POC Glucose 176 H Random Glucose Calcium Phosphorus Magnesium Albumin Vitamin D 25-Hydroxy Assessment and Plan - Assessment (1) Encephalopathy, metabolic Code(s): G93.41 - Metabolic encephalopathy Status: Acute (2) Poorly controlled diabetes mellitus Code(s): E11.65 - Type 2 diabetes mellitus with hyperglycemia Status: Acute (3) Hypoglycemia associated with diabetes Code(s): E11.649 - Type 2 diabetes mellitus with hypoglycemia without coma Status: Acute - Plan TSH pending. 67-year-old female with //Metabolic encephalopathy Now resolved It was due to severe episode of hypoglycemia. = Patient on chronic narcotics for diffuse pain. This pain is likely exacerbated by untreated sleep apnea, patient noncompliant with CPAP. She will need a new CPAP as an outpatient. =12/24 Patient very somnolent today. Malignant sleep apnea. Pulmonology consult. Have ordered CPAP. Instructed patient to sleep on her side while in the hospital. = 12/25. He continues with severe sleep apnea. Patient with variable medical compliance at home. Suspect she does not even take Risperdal at home, just as needed. Will discontinue Risperdal here. Will start on modafinil for alertness. = 12/26. Reviewing old records, patient appears to have a B12 deficiency with B12 early this year in the 180s. Will recheck B12, methylmalonic acid. Will start IM supplementation. Continue modafinil. = 12/27. Will repeat CT head to rule out subdural hematoma. Continue B12 supplementation. Appreciate hematology assistance. = 12/28. Repeat CT with no acute findings. Mental status improving with IV fluids, B12 supplementation. Appreciate hematology assistance. = 12/29. Alert and oriented x3. Hopefully discharge home tomorrow. //B12 deficiency //Leukopenia //Anemia. Chronic. Back ascitic. Likely secondary to B12 deficiency. With iron supplementation. Hematology following. Continue B12 supplementation.. = 12/29. Follow-up leukocyte tomorrow. 2.4 today. 2.6 yesterday. //Atypical left-sided chest pain -Tender to palpation. Likely costochondritis. We will check EKG, chest x-ray. D-dimer, bilateral lower extremity ultrasounds. Patient has been on heparin but does have history of DVT in the past. = D-dimer negative, chest x-ray with no acute findings. EKG with no acute findings. This chest pain resolved. //Affected obstructive sleep apnea //Chronic narcotic use Patient very concerned with following up to receive narcotic prescriptions from pain management tomorrow. I believe she has chronic untreated sleep apnea for which she is noncompliant with CPAP. Recommend avoiding all narcotics. You need to follow with pulmonology as outpatient to get a CPAP. = Very severe sleep apnea. Will start on CPAP. Pending pulmonology consultation. = Continues with very severe sleep apnea, somnolence. Appreciate pulmonary assistance. //Hypoglycemia associated with type 2 diabetes //Type 2 diabetes Will hold basal insulin Continue treatment per hypoglycemia protocol = Have ordered wood borer. Patient will no longer need insulin. = Blood sugars acceptable on low-dose glipizide. Continue to monitor = 12/27. Blood sugars elevated in the 200s. Will increase glipizide. //Acute kidney injury on kidney disease stage III. Creatinine around baseline. Avoid nephrotoxins. = 12/26. Patient will dehydrated. Will start on maintenance fluids. = 12/27. Maintenance fluids discontinued yesterday due to IV coming out. Will replace IV as creatinine up to 2.2 today. Maintenance fluids. = 12/28. Nephrology following. Creatinine improving. Continue IV fluids. Continue to monitor. //CT of the head demonstrated hyperdensity in the left frontal lobe most consistent with artifact rather than intracranial hemorrhage. Appreciate input from neurosurgery, no indication for further study //Other chronic medical conditions Continue outpatient medications //DVT prophylaxis: Bilateral SCDs Discharge Planning: Hopefully discharge home with home health versus rehab. Patient and family resistant to rehab. Discharge home with home health, medication management tomorrow if Leukocytes are stable Renal function continues to improve.
[2017-12-29] MEDS: Ferrous Sulfate 325 MG Tablet PO SCH ×2 (13:10→17:59)
--- NOTE | 2017-12-29 15:49 | P.PN ---
Subjective Interval history: alert sitting at side of bed Physical Exam Vital signs: Vital Signs 12/28/17 16:00 12/28/17 20:00 12/29/17 00:00 Temperature 97.8 F 97.8 F 97.7 F Pulse Rate 57 L 56 L 55 L Respiratory Rate 18 18 18 Blood Pressure 134/60 138/83 137/64 Pulse Oximetry 96 96 95 12/29/17 04:00 12/29/17 08:00 12/29/17 12:00 Temperature 97.5 F L 97.7 F 97.7 F Pulse Rate 57 L 49 L 54 L Respiratory Rate 18 18 16 Blood Pressure 146/66 H 162/73 H 138/64 Pulse Oximetry 96 98 98 Intake & Output 12/28/17 12/29/17 12/29/17 18:59 06:59 18:59 Intake Total 1400 / 1400 1158.3 / 1158.3 1000 / 1000 Output Total 150 / 150 Balance 1400 / 1400 1008.3 / 1008.3 1000 / 1000 Weight 129.7 kg Intake: IV 800 / 800 1158.3 / 1158.3 1000 / 1000 NS Inj 1,000 ML @ 84 mls/hr IV. 800 / 800 1158.3 / 1158.3 1000 / 1000 CONT .[id number] [facility] Rx#:[id number] Oral 600 / 600 0 / 0 Output: Urine 150 / 150 Other: # Voids 5 2 Date of Last Bowel Movement 12/29/17 # Bowel Movements 1 2 Narrative: GENERAL: Patient lying in bed. Alert and oriented x3. Appears comfortable. SKIN: Warm and dry. HEAD: Normocephalic. EYES: No scleral icterus. No injection or drainage. NECK: Supple, trachea midline. No JVD. CARDIOVASCULAR: Regular rate and rhythm without murmurs, gallops, or rubs. RESPIRATORY: Breath sounds equal bilaterally. No accessory muscle use. GASTROINTESTINAL: Abdomen soft, non-tender, nondistended. MUSCULOSKELETAL: No cyanosis, or edema. BACK: Nontender without obvious deformity. No CVA tenderness. - Urinary Catheter Management Indwelling Urethral Catheter Cath placed during this visit: no Results - Labs CBC & Chem 7: 12/29/17 05:27 12/29/17 05:27 Laboratory Results - last 24 hr 12/27/17 12/28/17 12/29/17 05:36 21:24 05:27 WBC 2.4 L RBC 2.88 L Hgb 9.9 L Hct 28.7 L MCV 99.4 MCH 34.3 H MCHC 34.5 RDW 14.3 Plt Count 213 MPV 8.2 Neut % (Auto) 47.4 Lymph % (Auto) 32.7 [place] % (Auto) 16.9 H Eos % (Auto) 1.7 Baso % (Auto) 1.3 Neut # (Auto) 1.1 L Lymph # (Auto) 0.8 L [place] # (Auto) 0.4 Eos # (Auto) 0.0 Baso # (Auto) 0.0 WBC Differential . Differential Comment Auto diff final Sodium Potassium Chloride Carbon Dioxide Anion Gap BUN Creatinine Estimated GFR POC Glucose 296 H Random Glucose Calcium Phosphorus Magnesium Albumin Vitamin D 25-Hydroxy Immunophenotypic Anal 12/29/17 12/29/17 12/29/17 05:27 08:29 12:04 WBC RBC Hgb Hct MCV MCH MCHC RDW Plt Count MPV Neut % (Auto) Lymph % (Auto) [place] % (Auto) Eos % (Auto) Baso % (Auto) Neut # (Auto) Lymph # (Auto) [place] # (Auto) Eos # (Auto) Baso # (Auto) WBC Differential Differential Comment Sodium 139 Potassium 4.9 Chloride 104 Carbon Dioxide 25.5 Anion Gap 10 BUN 40 H Creatinine 1.58 H Estimated GFR 32 L POC Glucose 176 H 243 H Random Glucose 156 H Calcium 9.0 Phosphorus 3.7 Magnesium 1.7 Albumin 3.3 L Vitamin D 25-Hydroxy 15.4 L Immunophenotypic Anal Assessment and Plan - Plan IMPRESSIN RESPIRATORY FAILURE DEANNE/CSA CHRONIC COMPENSATED RESPIRATORY FAILURE DM HTN CKD MORBID OBESITY PLAN O2 NEEDED LOOSE WT PULM TOILET INCREASE ACTIVITY
[2017-12-29] MEDS: Temazepam 15 MG Capsule PO PRN (21:24)
[2017-12-30 04:48] VITALS: O2SAT 96
[2017-12-30 05:36] LABS: Calcium 9.5 mg/dL (8.5-10.1); Carbon Dioxide 19.9 meq/L (21.0-32.0); Phosphorus 3.7 mg/dL (2.5-4.9); Potassium 4.9 meq/L (3.5-5.1)
[2017-12-30 08:29] LABS: Eos # (Auto) 0.1 th/mm3 (0.0-0.4); Eos % (Auto) 2.8 % (0.0-4.0); Hematocrit 27.6 % (35.0-46.0); Hemoglobin 9.8 gm/dL (11.6-15.3); Lymph # (Auto) 0.7 th/mm3 (1.0-4.8); Lymph % (Auto) 27.8 % (9.0-44.0); Mean Corpuscular HGB Conc 35.6 % (32.0-36.0); Mean Corpuscular Hemoglobin 36.2 pg (27.0-34.0); Mean Corpuscular Volume 101.8 fL (80.0-100.0); Mean Platelet Volume 8.2 fL (7.0-11.0); Mono # (Auto) 0.4 th/mm3 (0.0-0.9); Mono % (Auto) 14.9 % (0.0-8.0); Neut # (Auto) 1.4 th/mm3 (1.8-7.7); Neut % (Auto) 53.5 % (16.0-70.0); Platelet Count 217 th/mm3 (150-450); Red Blood Count 2.71 mil/mm3 (4.00-5.30); Red Cell Distribution Width 14.4 % (11.6-17.2); White Blood Count 2.7 th/mm3 (4.0-11.0)
[2017-12-30] MEDS ORDERED: Sodium Bicarbonate 650 MG Tablet PO ONE (08:45)
--- NOTE | 2017-12-30 08:58 | P.PN ---
Subjective Interval history: ALERT NAD Physical Exam Vital signs: Vital Signs 12/29/17 12:00 12/29/17 16:00 12/29/17 20:00 Temperature 97.7 F 97.4 F L 97.4 F L Pulse Rate 47 L 55 L 59 L Respiratory Rate 16 16 19 Blood Pressure 138/64 165/78 H 162/88 H Pulse Oximetry 98 98 96 12/30/17 00:00 12/30/17 04:00 Temperature 98 F 98.1 F Pulse Rate 56 L 54 L Respiratory Rate 19 20 Blood Pressure 147/65 H 141/82 H Pulse Oximetry 95 96 Intake & Output 12/29/17 12/30/17 12/30/17 18:59 06:59 18:59 Intake Total 1720 / 1720 1764 / 1764 Output Total 850 / 850 900 / 900 Balance 870 / 870 864 / 864 Weight 130.4 kg Intake: IV 1000 / 1000 1524 / 1524 NS Inj 1,000 ML @ 84 mls/hr IV. 1000 / 1000 1524 / 1524 CONT .[id number] [facility] Rx#:[id number] Oral 720 / 720 240 / 240 Output: Urine 850 / 850 900 / 900 Other: # Bowel Movements 1 Narrative: GENERAL: Patient lying in bed. Alert and oriented x3. Appears comfortable. SKIN: Warm and dry. HEAD: Normocephalic. EYES: No scleral icterus. No injection or drainage. NECK: Supple, trachea midline. No JVD. CARDIOVASCULAR: Regular rate and rhythm without murmurs, gallops, or rubs. RESPIRATORY: Breath sounds equal bilaterally. No accessory muscle use. GASTROINTESTINAL: Abdomen soft, non-tender, nondistended. MUSCULOSKELETAL: No cyanosis, or edema. BACK: Nontender without obvious deformity. No CVA tenderness. - Urinary Catheter Management Indwelling Urethral Catheter Cath placed during this visit: no Results - Labs CBC & Chem 7: 12/30/17 07:38 12/30/17 04:30 Laboratory Results - last 24 hr 12/27/17 12/29/17 12/29/17 05:36 12:04 17:21 WBC RBC Hgb Hct MCV MCH MCHC RDW Plt Count MPV Neut % (Auto) Lymph % (Auto) [place] % (Auto) Eos % (Auto) Baso % (Auto) Neut # (Auto) Lymph # (Auto) [place] # (Auto) Eos # (Auto) Baso # (Auto) WBC Differential Differential Comment Sodium Potassium Chloride Carbon Dioxide Anion Gap BUN Creatinine Estimated GFR POC Glucose 243 H 236 H Random Glucose Calcium Phosphorus Albumin Immunophenotypic Anal 12/29/17 12/30/17 12/30/17 21:24 04:30 07:38 WBC 2.7 L RBC 2.71 L Hgb 9.8 L Hct 27.6 L MCV 101.8 H MCH 36.2 H MCHC 35.6 RDW 14.4 Plt Count 217 MPV 8.2 Neut % (Auto) 53.5 Lymph % (Auto) 27.8 [place] % (Auto) 14.9 H Eos % (Auto) 2.8 Baso % (Auto) 1.0 Neut # (Auto) 1.4 L Lymph # (Auto) 0.7 L [place] # (Auto) 0.4 Eos # (Auto) 0.1 Baso # (Auto) 0.0 WBC Differential . Differential Comment Auto diff final Sodium 137 Potassium 4.9 Chloride 107 Carbon Dioxide 19.9 L Anion Gap 10 BUN 37 H Creatinine 1.23 H Estimated GFR 43 L POC Glucose 239 H Random Glucose 137 H Calcium 9.5 Phosphorus 3.7 Albumin 3.0 L Immunophenotypic Anal Assessment and Plan - Plan IMPRESSIN RESPIRATORY FAILURE DEANNE/CSA CHRONIC COMPENSATED RESPIRATORY FAILURE DM HTN CKD MORBID OBESITY PLAN O2 NEEDED LOOSE WT PULM TOILET INCREASE ACTIVITY OK FOR D/C OFFICE 1 WEEK
[2017-12-30] MEDS: Famotidine 20 MG Tablet PO SCH (09:02)
[2017-12-30] MEDS: Modafinil 200 MG Tablet PO SCH (09:02)
[2017-12-30] MEDS: Levothyroxine 100 MCG Tablet PO SCH (09:02)
[2017-12-30] MEDS: Sertraline 50 MG Tablet PO SCH (09:02)
[2017-12-30] MEDS: Carvedilol 12.5 MG Tablet PO SCH (09:02)
[2017-12-30] MEDS: Insulin NovoLOG Aspart Correctional Sugar Inj SQ SCH (09:07)
--- NOTE | 2017-12-30 09:53 | P.PNIM ---
Subjective Interval history: Patient seen using [employer] phone crime scene investigator. Patient says she is feeling right. Denies any chest pain or shortness of breath. She says she is very sad that her family is not in the hospital to visit her. She says she feels very lonely here without her family she does not want to go to rehab. She is alert and oriented x3. Physical Exam Vital signs: Vital Signs 12/29/17 12:00 12/29/17 16:00 12/29/17 20:00 Temperature 97.7 F 97.4 F L 97.4 F L Pulse Rate 47 L 55 L 59 L Respiratory Rate 16 16 19 Blood Pressure 138/64 165/78 H 162/88 H Pulse Oximetry 98 98 96 12/30/17 00:00 12/30/17 04:00 Temperature 98 F 98.1 F Pulse Rate 56 L 54 L Respiratory Rate 19 20 Blood Pressure 147/65 H 141/82 H Pulse Oximetry 95 96 Intake & Output 12/29/17 12/30/17 12/30/17 18:59 06:59 18:59 Intake Total 1720 / 1720 1764 / 1764 Output Total 850 / 850 900 / 900 Balance 870 / 870 864 / 864 Weight 130.4 kg Intake: IV 1000 / 1000 1524 / 1524 NS Inj 1,000 ML @ 84 mls/hr IV. 1000 / 1000 1524 / 1524 CONT .[id number] [facility] Rx#:[id number] Oral 720 / 720 240 / 240 Output: Urine 850 / 850 900 / 900 Other: # Bowel Movements 1 Narrative: GENERAL: Patient sleeping, wakes up for exam. alert and oriented x3. Appears comfortable. SKIN: Warm and dry. HEAD: Normocephalic. EYES: No scleral icterus. No injection or drainage. NECK: Supple, trachea midline. No JVD. CARDIOVASCULAR: Regular rate and rhythm without murmurs, gallops, or rubs. RESPIRATORY: Breath sounds equal bilaterally. No accessory muscle use. GASTROINTESTINAL: Abdomen soft, non-tender, nondistended. MUSCULOSKELETAL: No cyanosis, or edema. BACK: Nontender without obvious deformity. No CVA tenderness. - Urinary Catheter Management Indwelling Urethral Catheter Cath placed during this visit: no Results - Labs CBC & Chem 7: 12/30/17 07:38 10/09/18 04:30 Laboratory Results - last 24 hr 12/27/17 12/29/17 12/29/17 05:36 12:04 17:21 WBC RBC Hgb Hct MCV MCH MCHC RDW Plt Count MPV Neut % (Auto) Lymph % (Auto) [place] % (Auto) Eos % (Auto) Baso % (Auto) Neut # (Auto) Lymph # (Auto) [place] # (Auto) Eos # (Auto) Baso # (Auto) WBC Differential Differential Comment Sodium Potassium Chloride Carbon Dioxide Anion Gap BUN Creatinine Estimated GFR POC Glucose 243 H 236 H Random Glucose Calcium Phosphorus Albumin Immunophenotypic Anal 12/29/17 12/30/17 12/30/17 21:24 04:30 07:38 WBC 2.7 L RBC 2.71 L Hgb 9.8 L Hct 27.6 L MCV 101.8 H MCH 36.2 H MCHC 35.6 RDW 14.4 Plt Count 217 MPV 8.2 Neut % (Auto) 53.5 Lymph % (Auto) 27.8 [place] % (Auto) 14.9 H Eos % (Auto) 2.8 Baso % (Auto) 1.0 Neut # (Auto) 1.4 L Lymph # (Auto) 0.7 L [place] # (Auto) 0.4 Eos # (Auto) 0.1 Baso # (Auto) 0.0 WBC Differential . Differential Comment Auto diff final Sodium 137 Potassium 4.9 Chloride 107 Carbon Dioxide 19.9 L Anion Gap 10 BUN 37 H Creatinine 1.23 H Estimated GFR 43 L POC Glucose 239 H Random Glucose 137 H Calcium 9.5 Phosphorus 3.7 Albumin 3.0 L Immunophenotypic Anal Assessment and Plan - Assessment (1) Encephalopathy, metabolic Code(s): G93.41 - Metabolic encephalopathy Status: Acute (2) Poorly controlled diabetes mellitus Code(s): E11.65 - Type 2 diabetes mellitus with hyperglycemia Status: Acute (3) Hypoglycemia associated with diabetes Code(s): E11.649 - Type 2 diabetes mellitus with hypoglycemia without coma Status: Acute - Plan TSH pending. 67-year-old female with //Metabolic encephalopathy Now resolved It was due to severe episode of hypoglycemia. = Patient on chronic narcotics for diffuse pain. This pain is likely exacerbated by untreated sleep apnea, patient noncompliant with CPAP. She will need a new CPAP as an outpatient. =12/24 Patient very somnolent today. Malignant sleep apnea. Pulmonology consult. Have ordered CPAP. Instructed patient to sleep on her side while in the hospital. = 12/25. He continues with severe sleep apnea. Patient with variable medical compliance at home. Suspect she does not even take Risperdal at home, just as needed. Will discontinue Risperdal here. Will start on modafinil for alertness. = 12/26. Reviewing old records, patient appears to have a B12 deficiency with B12 early this year in the 180s. Will recheck B12, methylmalonic acid. Will start IM supplementation. Continue modafinil. = 12/27. Will repeat CT head to rule out subdural hematoma. Continue B12 supplementation. Appreciate hematology assistance. = 12/28. Repeat CT with no acute findings. Mental status improving with IV fluids, B12 supplementation. Appreciate hematology assistance. = 12/29. Alert and oriented x3. Hopefully discharge home tomorrow. //B12 deficiency //Leukopenia //Anemia. Chronic. Back ascitic. Likely secondary to B12 deficiency. With iron supplementation. Hematology following. Continue B12 supplementation.. = 12/29. Follow-up leukocyte tomorrow. 2.4 today. 2.6 yesterday. = 12/30. White blood cell count 2.7. //Adjustment disorder Patient very sad, feeling lonely. I feel she will do better at home. Nurse to call daughter //Atypical left-sided chest pain -Tender to palpation. Likely costochondritis. We will check EKG, chest x-ray. D-dimer, bilateral lower extremity ultrasounds. Patient has been on heparin but does have history of DVT in the past. = D-dimer negative, chest x-ray with no acute findings. EKG with no acute findings. This chest pain resolved. //Affected obstructive sleep apnea //Chronic narcotic use Patient very concerned with following up to receive narcotic prescriptions from pain management tomorrow. I believe she has chronic untreated sleep apnea for which she is noncompliant with CPAP. Recommend avoiding all narcotics. You need to follow with pulmonology as outpatient to get a CPAP. = Very severe sleep apnea. Will start on CPAP. Pending pulmonology consultation. = Continues with very severe sleep apnea, somnolence. Appreciate pulmonary assistance. = Follow with pulmonology as outpatient. //Hypoglycemia associated with type 2 diabetes //Type 2 diabetes Will hold basal insulin Continue treatment per hypoglycemia protocol = Have ordered software educator. Patient will no longer need insulin. = Blood sugars acceptable on low-dose glipizide. Continue to monitor = 12/27. Blood sugars elevated in the 200s. Will increase glipizide. = 12/30. Discharge home once daily Lantus. //Acute kidney injury on kidney disease stage III. Creatinine around baseline. Avoid nephrotoxins. = 12/26. Patient will dehydrated. Will start on maintenance fluids. = 12/27. Maintenance fluids discontinued yesterday due to IV coming out. Will replace IV as creatinine up to 2.2 today. Maintenance fluids. = 12/28. Nephrology following. Creatinine improving. Continue IV fluids. Continue to monitor. = 12/30. Creatinine 1.2. Improved. //CT of the head demonstrated hyperdensity in the left frontal lobe most consistent with artifact rather than intracranial hemorrhage. Appreciate input from neurosurgery, no indication for further study //Other chronic medical conditions Continue outpatient medications //DVT prophylaxis: Bilateral SCDs Discharge Planning: Hopefully discharge home with home health versus rehab. Patient and family resistant to rehab. Discharge home with home health, medication management
[2017-12-30 09:54] VITALS: BP 170/72; PULSE 55; RESP 16; TEMP 97.5
--- NOTE | 2017-12-30 09:54 | P.DS ---
Date of admission: 12/21/17 10:04 Primary care physician: UNKNOWN Brief History from admission: Patient is a 67-year-old female who arrives to the ER via EMS with altered mental status. Patient is diabetic. Family members noted that patient had thrown her medication around the room and pt was found on the floor and noted to be combative and agitated. Upon EMS arrival, patient was found to have a blood sugar of 34. They were unable to obtain IV access. Patient is agitated and uncooperative and nonverbal. Patient continues to writhe and make non- intelligible sounds. Patient is morbidly obese and EMS was unable to obtain an intraosseous catheter. Upon arrival in the emergency department, patient had to be restrained with soft restraints. Ativan 1 mg IM was given to try and calm her down. Per EMS, patient has done something similar to this once before when she took too many of her meds at once. A CAT scan of the head raise some suspicion for a possible area of frontal lobe contusion or bleed however further review indicates that this is most probably artifact. There is no evidence of external trauma to the head. The patient does complain of having fallen straight on both knees and having pain in the knees. Further she has long-standing gout and has ankle and knee pain. Because she fell onto her knees and has pain, we obtained bilateral knee films which are negative. DS: Diagnosis - Discharge Diagnosis (1) Encephalopathy, metabolic Status: Acute (2) Poorly controlled diabetes mellitus Status: Acute (3) Hypoglycemia associated with diabetes Status: Acute DS: Medications - Discharge Medications Prescriptions: cholecalciferol (vitamin D3) [Vitamin D3] 2,000 unit PO DAILY 30 Days #60 tab cyanocobalamin (vitamin B-12) [Vitamin B-12] 1,000 mcg PO DAILY 30 Days #30 tab glipizide 2.5 mg PO DAILY 30 Days #30 tab insulin glargine [Lantus Solostar U-100 Insulin] 12 unit SUBCUT DAILY 30 Days # 3.6 ml modafinil 100 mg PO DAILY 30 Days #15 tab DS: Summary Hospital Course: Patient presented with hypoglycemia in the 30s, altered mental status. Hypoglycemia improved with D5 infusion, and patient found to have A1c of 5.3. Patient with continued encephalopathy, however no acute findings on CT head. Patient with what appears to be untreated sleep apnea and will need follow-up with pulmonology as outpatient. Alertness improved with modafinil. Patient also developed acute kidney injury with creatinine of 2.6. This improved with discontinuation of Lasix, and encouraged fluids. Patient also found to have pancytopenia for which hematology was consulted. Patient B12 deficient we'll need to continue on B12 supplementation. Follow with hematology as outpatient. For problem-based summary from most recent progress note, please see below. 67-year-old female with //Metabolic encephalopathy Now resolved It was due to severe episode of hypoglycemia. = Patient on chronic narcotics for diffuse pain. This pain is likely exacerbated by untreated sleep apnea, patient noncompliant with CPAP. She will need a new CPAP as an outpatient. =12/24 Patient very somnolent today. Malignant sleep apnea. Pulmonology consult. Have ordered CPAP. Instructed patient to sleep on her side while in the hospital. = 12/25. He continues with severe sleep apnea. Patient with variable medical compliance at home. Suspect she does not even take Risperdal at home, just as needed. Will discontinue Risperdal here. Will start on modafinil for alertness. = 12/26. Reviewing old records, patient appears to have a B12 deficiency with B12 early this year in the 180s. Will recheck B12, methylmalonic acid. Will start IM supplementation. Continue modafinil. = 12/27. Will repeat CT head to rule out subdural hematoma. Continue B12 supplementation. Appreciate hematology assistance. = 12/28. Repeat CT with no acute findings. Mental status improving with IV fluids, B12 supplementation. Appreciate hematology assistance. = 12/29. Alert and oriented x3. Hopefully discharge home tomorrow. //B12 deficiency //Leukopenia //Anemia. Chronic. Back ascitic. Likely secondary to B12 deficiency. With iron supplementation. Hematology following. Continue B12 supplementation.. = 12/29. Follow-up leukocyte tomorrow. 2.4 today. 2.6 yesterday. = 12/30. White blood cell count 2.7. //Adjustment disorder Patient very sad, feeling lonely. I feel she will do better at home. Nurse to call daughter //Atypical left-sided chest pain -Tender to palpation. Likely costochondritis. We will check EKG, chest x-ray. D-dimer, bilateral lower extremity ultrasounds. Patient has been on heparin but does have history of DVT in the past. = D-dimer negative, chest x-ray with no acute findings. EKG with no acute findings. This chest pain resolved. //Affected obstructive sleep apnea //Chronic narcotic use Patient very concerned with following up to receive narcotic prescriptions from pain management tomorrow. I believe she has chronic untreated sleep apnea for which she is noncompliant with CPAP. Recommend avoiding all narcotics. You need to follow with pulmonology as outpatient to get a CPAP. = Very severe sleep apnea. Will start on CPAP. Pending pulmonology consultation. = Continues with very severe sleep apnea, somnolence. Appreciate pulmonary assistance. = Follow with pulmonology as outpatient. //Hypoglycemia associated with type 2 diabetes //Type 2 diabetes Will hold basal insulin Continue treatment per hypoglycemia protocol = Have ordered personal development educator. Patient will no longer need insulin. = Blood sugars acceptable on low-dose glipizide. Continue to monitor = 12/27. Blood sugars elevated in the 200s. Will increase glipizide. = 12/30. Discharge home once daily Lantus. //Acute kidney injury on kidney disease stage III. Creatinine around baseline. Avoid nephrotoxins. = 12/26. Patient will dehydrated. Will start on maintenance fluids. = 12/27. Maintenance fluids discontinued yesterday due to IV coming out. Will replace IV as creatinine up to 2.2 today. Maintenance fluids. = 12/28. Nephrology following. Creatinine improving. Continue IV fluids. Continue to monitor. = 12/30. Creatinine 1.2. Improved. //CT of the head demonstrated hyperdensity in the left frontal lobe most consistent with artifact rather than intracranial hemorrhage. Appreciate input from neurosurgery, no indication for further study //Other chronic medical conditions Continue outpatient medications //DVT prophylaxis: Bilateral SCDs Discharge Planning: Hopefully discharge home with home health versus rehab. Patient and family resistant to rehab. Discharge home with home health, medication management - Time Spent with Patient Total time spent providing and/or coordinating discharge services: Greater than 30 minutes - Quality: VTE Deep Vein Thrombosis/Pulmonary Embolism Present on Admission: No Exam Vital signs: Vital Signs 12/29/17 12:00 12/29/17 16:00 12/29/17 20:00 Temperature 97.7 F 97.4 F L 97.4 F L Pulse Rate 47 L 55 L 59 L Respiratory Rate 16 16 19 Blood Pressure 138/64 165/78 H 162/88 H Pulse Oximetry 98 98 96 12/30/17 00:00 12/30/17 04:00 12/30/17 08:00 Temperature 98 F 98.1 F 97.5 F L Pulse Rate 56 L 54 L 55 L Respiratory Rate 19 20 16 Blood Pressure 147/65 H 141/82 H 170/72 H Pulse Oximetry 95 96 96 Intake & Output 12/29/17 12/30/17 12/30/17 18:59 06:59 18:59 Intake Total 1720 / 1720 1764 / 1764 Output Total 850 / 850 900 / 900 Balance 870 / 870 864 / 864 Weight 130.4 kg Intake: IV 1000 / 1000 1524 / 1524 NS Inj 1,000 ML @ 84 mls/hr IV. 1000 / 1000 1524 / 1524 CONT .[id number] [facility] Rx#:[id number] Oral 720 / 720 240 / 240 Output: Urine 850 / 850 900 / 900 Other: # Bowel Movements 1 Results Procedures completed during hospitalization: no invasive procedures Labs on day of discharge: Labs from last 24 hours 12/30/17 12/30/17 12/29/17 07:38 04:30 21:24 WBC 2.7 L RBC 2.71 L Hgb 9.8 L Hct 27.6 L MCV 101.8 H MCH 36.2 H MCHC 35.6 RDW 14.4 Plt Count 217 MPV 8.2 Neut % (Auto) 53.5 Lymph % (Auto) 27.8 [place] % (Auto) 14.9 H Eos % (Auto) 2.8 Baso % (Auto) 1.0 Neut # (Auto) 1.4 L Lymph # (Auto) 0.7 L [place] # (Auto) 0.4 Eos # (Auto) 0.1 Baso # (Auto) 0.0 WBC Differential . Differential Comment Auto diff final Sodium 137 Potassium 4.9 Chloride 107 Carbon Dioxide 19.9 L Anion Gap 10 BUN 37 H Creatinine 1.23 H Estimated GFR 43 L POC Glucose 239 H Random Glucose 137 H Calcium 9.5 Phosphorus 3.7 Albumin 3.0 L Methylmalonic Acid Immunophenotypic Anal 12/29/17 12/29/17 12/27/17 17:21 12:04 05:36 WBC RBC Hgb Hct MCV MCH MCHC RDW Plt Count MPV Neut % (Auto) Lymph % (Auto) [place] % (Auto) Eos % (Auto) Baso % (Auto) Neut # (Auto) Lymph # (Auto) [place] # (Auto) Eos # (Auto) Baso # (Auto) WBC Differential Differential Comment Sodium Potassium Chloride Carbon Dioxide Anion Gap BUN Creatinine Estimated GFR POC Glucose 236 H 243 H Random Glucose Calcium Phosphorus Albumin Methylmalonic Acid Immunophenotypic Anal 12/26/17 10:20 WBC RBC Hgb Hct MCV MCH MCHC RDW Plt Count MPV Neut % (Auto) Lymph % (Auto) [place] % (Auto) Eos % (Auto) Baso % (Auto) Neut # (Auto) Lymph # (Auto) [place] # (Auto) Eos # (Auto) Baso # (Auto) WBC Differential Differential Comment Sodium Potassium Chloride Carbon Dioxide Anion Gap BUN Creatinine Estimated GFR POC Glucose Random Glucose Calcium Phosphorus Albumin Methylmalonic Acid 0.30 Immunophenotypic Anal - Impressions ITS Impressions Knee X-Ray 12/21/17 00:00 CONCLUSION: No acute fracture. Tricompartmental osteoarthritis. Chest X-Ray 12/26/17 00:00 CONCLUSION: 1. Minimal bibasilar patchiness. 2. Cardiomegaly. Venous Doppler Study 12/26/17 00:00 CONCLUSION: 1. The study is negative for bilateral lower extremity deep venous thrombosis. Abdomen/Bladder Ultrasound 12/27/17 00:00 CONCLUSION: 1. The kidneys are echogenic bilaterally consistent with medical renal disease. 2. No evidence of hydronephrosis. 3. Benign-appearing left renal cyst measuring 3.[address] 12/27/17 00:00 CONCLUSION: 1. No focal or acute intracranial hemorrhage. 2. Unremarkable CT brain for patient's age. . Liver Ultrasound 12/27/17 00:00 CONCLUSION: 1. Hepatosplenomegaly. 2. Cholelithiasis. 3. Echogenic kidney with thinned renal cortex consistent with medical renal disease. Discharge Plan - Discharge Disposition Patient Disposition: /Home Health Service - Discharge Condition Condition: Good - Discharge Order Discharge Orders: Discharge Order (Routine); Ordered 12/30/17 Ordered By: Gilberto Griffiths - Discharge Details Anticipated Discharge Date: 12/30/17 Discharge Comment: okay for dc if WBC is over 2.5. - Physicians Team Primary Care Provider: UNKNOWN, Attending Provider: Gilberto Griffiths Other Providers: Fermin Christensen MD ; Camrny Faustin ; Ju Villarreal MD - Rxs /Orders / Referrals /Forms Prescriptions: New cholecalciferol (vitamin D3) [Vitamin D3] 1,000 unit Tablet 2,000 unit PO DAILY 30 Days Qty: 60 RF: 0 cyanocobalamin (vitamin B-12) [Vitamin B-12] 1,000 mcg Tablet 1,000 mcg PO DAILY 30 Days Qty: 30 RF: 0 ferrous sulfate [FeroSul] 325 mg (65 mg iron) Tablet 325 mg PO BID@1200,1700 RF: 0 glipizide 2.5 mg Tablet Extended Release 24hr 2.5 mg PO DAILY 30 Days Qty: 30 RF: 0 insulin glargine [Lantus Solostar U-100 Insulin] 100 unit/mL (3 mL) Insulin Pen 12 unit SUBCUT DAILY 30 Days Qty: 3.6 RF: 0 modafinil 200 mg Tablet 100 mg PO DAILY 30 Days Qty: 15 RF: 0 Continue aspirin [Aspir-81] 81 mg Tablet,Delayed Release (Dr/Ec) 81 mg PO DAILY bisacodyl 5 mg Tablet 5 mg PO DAILY PRN (Reason: Constipation) carvedilol 12.5 mg Tablet 12.5 mg PO BID levothyroxine 100 mcg Tablet 100 mcg PO DAILY ranitidine HCl 300 mg Capsule 300 mg PO DAILY sertraline 50 mg Tablet 50 mg PO DAILY Discontinued acetaminophen 500 mg Capsule 500 mg PO Q4H PRN (Reason: Pain) furosemide 40 mg Tablet 40 mg PO DAILY insulin asp prt-insulin aspart [Novolog Mix 70-30 U-100 Insuln] 100 unit/mL ( 70-30) Solution 36 unit SUBCUT DAILY risperidone 1 mg Tablet 1 mg PO BID tramadol 50 mg Tablet 50 mg PO TID PRN (Reason: Pain) Referrals: [facility] [Outside] - See Instructions (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 FERMIN CHRISTENSEN) Ju Villarreal MD [Physician] - 01/14/18 1:45 pm (APPOINTMENT WILL BE AT THE [facility] OFFICE ) Camryn Faustin [Physician] - See Instructions (OFFICE WILL CALL PATIENT ) UNKNOWN, [Primary Care Provider] - See Instructions (PLEASE CALL FOR FOLLOW [facility] [phone] (MEDICAL RECORDS NEEDED) ) Fermin Christensen MD [Physician] - 01/09/18 1:15 pm (APPOINTMENT WILL BE AT THE [facility] [address] [place] [address], [facility]. [id number]) - Discharge Instructions Patient Printed Instructions: Glipizide (By mouth), Modafinil (By mouth), Folic Acid/Cyanocobalamin (By mouth), Ascorbic Acid/Cyanocobalamin/Ferrous Fumarate (By mouth), Cholecalciferol (By mouth), Hypoglycemia in a Person with Diabetes (DC), Meal Planning with Diabetes Exchanges (DC) - Post Discharge Care Plan Care Plan Goals: Your Health Problems: Goals to Promote Your Health: * To prevent worsening of your condition * To maintain your health at the optimal level Directions to Meet Your Goals: * Take your medications as prescribed * Follow your dietary instruction * Follow activity as directed * Keep your appointments as scheduled * Take your immunizations and boosters as scheduled * If your symptoms worsen call your PCP * If no PCP go to Urgent Care or Emergency Room Smoking is dangerous to your health. Avoid second hand smoke. You may reach the 24-hour crisis hotline for domestic abuse at .
[2017-12-30] MEDS: Heparin - SQ 10,000 UNITS/ML Vial SQ SCH (10:58)
[2017-12-30] MEDS: Ferrous Sulfate 325 MG Tablet PO SCH (11:00)
== END 2017-12-30 11:55 | disposition home health service (06) ==
LOC: NEDDLT 05:26 → N03 10:04 → N04 12-23 00:25
PROVIDERS: ADMIT Internal Medicine; ATTEND Internal Medicine